=== PATIENT | female | born 1930 | race Asian ===

== ENCOUNTER → 2016-04-15 | Outpatient (CLI) | payer BC ==
[~2016-04-15] MED LIST: ACET-1256 PO; ANT25 PO; ASPEC81 PO; CALC-16 PO; CMD1 PO; CMD2 PO; LSN20 PO; METO-217 PO; MULT-506 PO; OMEG10007 PO; PLN5 PO; PRAV20TA PO; SPR25 PO; ZNTT/150 PO
[2016-04-15 17:03] LABS: BASO % 0.8 %; BASO ABS # 0.03 K/uL (0-0.2); COMPLETE YES; EOS % 4.8 %; HEMATOCRIT 39.7 % (37-47); LYMPH % 30.4 %; LYMPH ABS # 1.19 K/uL (1.2-3.4); MEAN CORPUSCULAR HEMOGLOBIN 33.1 pg (25-34); MEAN CORPUSCULAR HGB CONC 33.8 g/dl (32-36); MEAN PLATELET VOLUME 10.7 fL (7.4-10.4); MONO % 10.5 %; NEUT % 53.5 %; PLATELET COUNT 191 K/uL (130-400); RED BLOOD COUNT 4.05 M/uL (4.2-5.4); WHITE BLOOD COUNT 3.92 K/uL (4.8-10.8)
[2016-04-15 17:13] LABS: ALT/SGPT 22 U/L (12-78); AST/SGOT 40 U/L (15-37); BLOOD UREA NITROGEN 27 mg/dl (7-18); BUN/CREATININE RATIO 22.3 (10-20); CARBON DIOXIDE 26 mmol/L (21-32); CHLORIDE 106 mmol/L (98-107); GLUCOSE 87 mg/dl (70-99); POTASSIUM 4.5 mmol/L (3.5-5.1); SODIUM 140 mmol/L (136-145)
[2016-04-15 17:24] LABS: ALB/GLOB RATIO 1.2 (0.9-2); ALKALINE PHOSPHATASE 43 U/L (45-117); CHOLESTEROL 138 mg/dl (0-200); CHOLESTEROL/HDL RATIO 2.7; HDL CHOLESTEROL 51 mg/dl; LDL CHOLESTEROL CALCULATED 60 mg/dl; TRIGLYCERIDES 136 mg/dl (0-150); VERY LOW DENSITY LIPOPROT CALC 27 mg/dl
== END | disposition home or self-care (01) ==
LOC: C.LABBC 12:22
PROVIDERS: ATTEND Internal Medicine Geriatric Medicine
DX: I48.2 Chronic atrial fibrillation (principal); I10 Essential (primary) hypertension; R35.0 Frequency of micturition; E78.5 Hyperlipidemia, unspecified; I49.5 Sick sinus syndrome; R73.9 Hyperglycemia, unspecified; R31.9 Hematuria, unspecified; Z79.01 Long term (current) use of anticoagulants; N93.9 Abnormal uterine and vaginal bleeding, unspecified; Z51.81 Encounter for therapeutic drug level monitoring

== ENCOUNTER → 2016-09-09 | Outpatient (CLI) | payer BC ==
[2016-09-09 10:34] LABS: BASO % 0.8 %; BASO ABS # 0.03 K/uL (0-0.2); COMPLETE YES; EOS % 5.9 %; HEMATOCRIT 41.8 % (37-47); IG% 0.3 %; LYMPH % 31.4 %; LYMPH ABS # 1.11 K/uL (1.2-3.4); MEAN CELL VOLUME 99.8 fL (80-100); MEAN CORPUSCULAR HEMOGLOBIN 32.7 pg (25-34); MEAN CORPUSCULAR HGB CONC 32.8 g/dl (32-36); MONO % 10.2 %; NEUT % 51.4 %; PLATELET COUNT 200 K/uL (130-400); RED BLOOD COUNT 4.19 M/uL (4.2-5.4); WHITE BLOOD COUNT 3.53 K/uL (4.8-10.8)
[2016-09-09 10:38] LABS: CALCIUM 9.2 mg/dl (8.5-10.1)
[2016-09-09 10:41] LABS: ALT/SGPT 24 U/L (12-78); BLOOD UREA NITROGEN 31 mg/dl (7-18); BUN/CREATININE RATIO 23.6 (10-20); CARBON DIOXIDE 27 mmol/L (21-32); CHLORIDE 106 mmol/L (98-107); CHOLESTEROL 156 mg/dl (0-200); GLUCOSE 76 mg/dl (70-99); POTASSIUM 4.7 mmol/L (3.5-5.1); SODIUM 140 mmol/L (136-145); TRIGLYCERIDES 207 mg/dl (0-150); VERY LOW DENSITY LIPOPROT CALC 41 mg/dl
[2016-09-09 10:49] LABS: ESTIMATED AVERAGE GLUCOSE 126 mg/dl; HA1C FLAG Normal (Normal)
[2016-09-09 10:51] LABS: ALB/GLOB RATIO 1.1 (0.9-2); ALKALINE PHOSPHATASE 47 U/L (45-117); AST/SGOT 46 U/L (15-37); CHOLESTEROL/HDL RATIO 3.8; HDL CHOLESTEROL 41 mg/dl; LDL CHOLESTEROL CALCULATED 74 mg/dl
== END | disposition home or self-care (01) ==
LOC: C.LABBC 08:59
PROVIDERS: ATTEND Internal Medicine Geriatric Medicine
DX: I10 Essential (primary) hypertension (principal); I49.5 Sick sinus syndrome; R42 Dizziness and giddiness; E78.5 Hyperlipidemia, unspecified; R73.9 Hyperglycemia, unspecified; M19.90 Unspecified osteoarthritis, unspecified site

== ENCOUNTER → 2016-11-05 | Outpatient (CLI) | payer BC ==
[2016-11-05 10:42] LABS: ALT/SGPT 23 U/L (12-78); BLOOD UREA NITROGEN 24 mg/dl (7-18); BUN/CREATININE RATIO 18.8 (10-20); CALCIUM 9.5 mg/dl (8.5-10.1); CARBON DIOXIDE 29 mmol/L (21-32); CHLORIDE 106 mmol/L (98-107); GLUCOSE 65 mg/dl (70-99); SODIUM 141 mmol/L (136-145)
[2016-11-05 10:45] LABS: ALB/GLOB RATIO 1.1 (0.9-2); ALKALINE PHOSPHATASE 46 U/L (45-117); AST/SGOT 45 U/L (15-37)
== END | disposition home or self-care (01) ==
LOC: C.LABVPSUW 09:31
PROVIDERS: ATTEND Internal Medicine Geriatric Medicine
DX: I12.9 Hypertensive chronic kidney disease with stage 1 through stage 4 chronic kidney disease, or unspecified chronic kidney disease (principal); N18.9 Chronic kidney disease, unspecified; I49.5 Sick sinus syndrome

== ENCOUNTER → 2016-11-11 | Outpatient (CLI) | payer BC ==
--- NOTE | 2016-11-11 09:18 | DIAGNOSTIC IMAGING REPORT ---
EXAMINATION: RENAL ULTRASOUND CLINICAL HISTORY: ELEVATED SERUM CREATININE COMPARISON STUDY: CT scan dated 04/26/2013 FINDINGS: The right kidney measures 10.1 cm. The left kidney measures 10.1 cm. There is no evidence of hydronephrosis. There are no renal masses. There is slight increase in renal cortical echogenicity, consistent with medical renal disease. No bladder abnormalities are visualized. Bilateral ureteral jets were visualized. IMPRESSION : Slight increase in renal cortical echogenicity, suggesting medical renal disease. No renal masses identified. No evidence of hydronephrosis. Electronically signed by: Vamsi Pro M.D. 11/11/2016 9:17 AM Dictated Date/Time: 11/11/2016 9:16 AM
== END | disposition home or self-care (01) ==
LOC: C.ULTRBC 08:36
PROVIDERS: ATTEND Internal Medicine Geriatric Medicine
DX: R79.89 Other specified abnormal findings of blood chemistry (principal)

== ENCOUNTER → 2016-11-26 | Outpatient (CLI) | payer BC ==
[2016-11-26 10:50] LABS: BLOOD UREA NITROGEN 28 mg/dl (7-18); BUN/CREATININE RATIO 23.4 (10-20); CALCIUM 9.3 mg/dl (8.5-10.1); CARBON DIOXIDE 26 mmol/L (21-32); CHLORIDE 106 mmol/L (98-107); GLUCOSE 88 mg/dl (70-99); POTASSIUM 4.2 mmol/L (3.5-5.1); SODIUM 139 mmol/L (136-145)
[2016-11-26 10:51] LABS: INR 2.6 (0.9-1.1); PROTHROMBIN TIME (PATIENT) 29.1 SECONDS (9.0-12.0)
== END | disposition home or self-care (01) ==
LOC: C.LABVPSUW 10:12
PROVIDERS: ATTEND Internal Medicine Geriatric Medicine
DX: Z00.00 Encounter for general adult medical examination without abnormal findings (principal); N18.9 Chronic kidney disease, unspecified; I12.9 Hypertensive chronic kidney disease with stage 1 through stage 4 chronic kidney disease, or unspecified chronic kidney disease; I49.5 Sick sinus syndrome; I48.2 Chronic atrial fibrillation

== ENCOUNTER → 2017-02-08 | Outpatient (CLI) | payer BC ==
[2017-02-08 10:10] LABS: PROTHROMBIN TIME (PATIENT) 45.8 SECONDS (9.0-12.0)
== END | disposition home or self-care (01) ==
LOC: C.LABVPSUW 09:41
PROVIDERS: ATTEND Internal Medicine Cardiovascular Disease
DX: I48.2 Chronic atrial fibrillation (principal)

== ENCOUNTER → 2017-02-11 | Outpatient (CLI) | payer BC ==
[2017-02-11 09:53] LABS: PROTHROMBIN TIME (PATIENT) 21.5 SECONDS (9.0-12.0)
== END | disposition home or self-care (01) ==
LOC: C.LABVPSUW 09:06
PROVIDERS: ATTEND Internal Medicine Cardiovascular Disease
DX: I48.2 Chronic atrial fibrillation (principal)

== ENCOUNTER → 2017-03-04 | Outpatient (CLI) | payer BC ==
[2017-03-04 08:55] LABS: INR 2.2 (0.9-1.1); PROTHROMBIN TIME (PATIENT) 22.8 SECONDS (9.0-12.0)
== END | disposition home or self-care (01) ==
LOC: C.LABVPSUW 08:34
PROVIDERS: ATTEND Internal Medicine Cardiovascular Disease
DX: I48.2 Chronic atrial fibrillation (principal)

== ENCOUNTER → 2017-05-25 | Outpatient (CLI) | payer BC ==
[~2017-05-25] MED LIST changes: +RANI150T85 PO; -ZNTT/150 PO
[2017-05-25 16:49] LABS: BASO % 0.7 %; BASO ABS # 0.03 K/uL (0-0.2); EOS % 4.5 %; HEMATOCRIT 37.6 % (37-47); HEMOGLOBIN 12.7 g/dL (12.0-16.0); LYMPH % 25.6 %; LYMPH ABS # 1.15 K/uL (1.2-3.4); MEAN CELL VOLUME 98.2 fL (80-100); MEAN CORPUSCULAR HEMOGLOBIN 33.2 pg (25-34); MEAN CORPUSCULAR HGB CONC 33.8 g/dl (32-36); MEAN PLATELET VOLUME 9.9 fL (7.4-10.4); MONO ABS # 0.36 K/uL (0.11-0.59); NEUT % 61.2 %; NEUT ABS # 2.75 K/uL (1.4-6.5); PLATELET COUNT 200 K/uL (130-400); RED CELL DISTRIBUTION WIDTH CV 13.5 % (11.5-14.5); RED CELL DISTRIBUTION WIDTH SD 48.4 fL (36.4-46.3); WHITE BLOOD COUNT 4.49 K/uL (4.8-10.8)
[2017-05-25 17:19] LABS: BLOOD UREA NITROGEN 32 mg/dl (7-18); CALCIUM 9.1 mg/dl (8.5-10.1); CARBON DIOXIDE 26 mmol/L (21-32); CREATININE 1.37 mg/dl (0.60-1.20); GLUCOSE 121 mg/dl (70-99); POTASSIUM 4.3 mmol/L (3.5-5.1); SODIUM 137 mmol/L (136-145)
== END | disposition home or self-care (01) ==
LOC: C.LABBC 15:04
PROVIDERS: ATTEND Internal Medicine Geriatric Medicine
DX: I12.9 Hypertensive chronic kidney disease with stage 1 through stage 4 chronic kidney disease, or unspecified chronic kidney disease (principal); R73.9 Hyperglycemia, unspecified; Z79.01 Long term (current) use of anticoagulants; N18.9 Chronic kidney disease, unspecified

== ENCOUNTER → 2017-11-08 | Outpatient (CLI) | payer BC ==
[~2017-11-08] MED LIST changes: -ASPEC81 PO; +ASPI-320 PO; +LISI-726 PO; -LSN20 PO; +SPIR25TA6 PO; -SPR25 PO
[2017-11-08 10:07] LABS: INR 3.3 (0.9-1.1)
== END | disposition home or self-care (01) ==
LOC: C.LABVPSUW 09:38
PROVIDERS: ATTEND Internal Medicine Cardiovascular Disease
DX: I48.2 Chronic atrial fibrillation (principal)

== ENCOUNTER 2019-09-30 22:02 | Inpatient (IN) ==
[2019-09-30] MEDS ORDERED: OPTIRAY 320 125ml IV PRN (22:18)
[2019-09-30 22:32] LABS: Basophils # (auto) 0.01 K/uL (0-0.2); Basophils % (auto) 0.1 %; Eosinophils # (auto) 0.01 K/uL (0-0.5); Eosinophils % (auto) 0.1 %; Hemoglobin 10.9 g/dL (12.0-16.0); Immature Granulocytes # (auto) 0.01 K/uL (0.00-0.02); Immature Granulocytes % (auto) 0.1 %; Lymphocytes % (auto) 8.3 %; Mean Corpuscular Hemoglobin 31.8 pg (25-34); Mean Corpuscular Volume 96.2 fL (80-100); Mean Platelet Volume 9.9 fL (7.4-10.4); Monocytes # (auto) 0.36 K/uL (0.11-0.59); Neutrophils # (auto) 6.22 K/uL (1.4-6.5); Neutrophils % (auto) 86.4 %; Platelet Count 184 K/uL (130-400); RDW Coefficient of Variation 13.1 % (11.5-14.5); RDW Standard Deviation 45.4 fL (36.4-46.3); Red Blood Count 3.43 M/uL (4.2-5.4); White Blood Count 7.21 K/uL (4.8-10.8)
[2019-09-30 22:42] LABS: INR 1.2 (0.9-1.1); Partial Thromboplastin Time 28.8 Seconds (21.0-31.0); Prothrombin Time 12.2 Seconds (9.0-12.0)
[2019-09-30 22:51] LABS: Albumin Level 3.2 gm/dl (3.4-5.0); BUN Creatinine Ratio 21.5 (10-20); Calcium 8.7 mg/dl (8.5-10.1); Creatinine Clr Calc Pharmacy 24.7 ml/min; Est GFR (African American) 42.5; Est GFR (Non-African American) 36.7; Magnesium 1.7 mg/dl (1.8-2.4); Potassium 4.1 mmol/L (3.5-5.1)
--- NOTE | 2019-09-30 22:53 | Emergency Department Note ---
Impression & Plan Acute CVA (cerebrovascular accident), Hypomagnesemia, Atrial fibrillation ED Provider Note NAME: ARMANDO LIN AGE: 88 SEX: F : 1930 ARRIVES VIA: Ambulance INFORMANT: Patient, the prehospital personnel. ED PROVIDER(S): Papo Quinteros DO CHIEF COMPLAINT: Weakness HPI: The patient is an 88-year-old female who presented to the emergency department for an evaluation of weakness. The patient was found on the floor at her personal assisted exhibiting signs of stroke. We received a prehospital notification about the patient and she was made a stroke alert prior to arrival. Apparently the patient's son has been trying to get a hold of her. When he called the personal assisted and they sent maintenance to check on her she was found on her floor. The patient was exhibiting signs of right-sided weakness both in the upper and lower extremity. She is also exhibiting right facial droop. She is complaining of left hip pain. The patient speech is somewhat slurred and history is difficult to obtain. Prior to arrival the patient's previous electronic medical records were reviewed. The patient does have a history of atrial fibrillation and does take warfarin. She also has a history of an intracranial hemorrhage in the past. At this time the last known well time is somewhere around 9:30 in the morning because this is the time that residents would normally press her alert button to show that they are awake and well. ROS: See above HPI for pertinent positives & negatives. A total of 10 systems reviewed and were otherwise negative. PAST MEDICAL HISTORY: See Below PAST SURGICAL HISTORY: See Below FAMILY HISTORY: See Below SOCIAL HISTORY: See Below HOME MEDICATIONS: See Below ALLERGIES: See Below VITALS: See Below PHYSICAL EXAMINATION: GENERAL: The patient is awake and very anxious appearing. The patient speech is very pressured. EYES: The conjunctivae are clear. The pupils are round and reactive. EARS, NOSE, MOUTH AND THROAT: The nose is without any evidence of any deformity. Mucous membranes are moist. Tongue is midline. NECK: The neck is nontender and supple. RESPIRATORY: Normal respiratory effort is noted there is no evidence of wheezing rhonchi or rales CARDIOVASCULAR: Irregular rhythm was noted to auscultation. GASTROINTESTINAL: The abdomen is soft. Abdomen is nontender. MUSCULOSKELETAL/EXTREMITIES: There is pain with range of motion testing of the left hip. There is no deformity or shortening. The patient also has some tenderness on the lateral aspect of the left knee. SKIN: There is no obvious evidence of any rash. There are no petechiae, pallor or cyanosis noted. NEUROLOGIC: The patient is able to answer questions slowly. Her speech is pressured. There is a right facial droop involving the corner of the mouth. There appears to be forehead sparing. The patient has a contracted right upper extremity. The right upper extremity is flaccid. The patient is unable to lift the right leg off the bed. She is also having significant difficulty lifting the left leg off the bed. She is able to hold the left arm in the air for greater than 5 seconds. MEDICAL DECISION MAKING: The patient is an 88-year-old female who presented to the emergency department for an evaluation of right-sided weakness. The patient was not seen today until she was found on her floor. She does have a button that she has to push in the morning at approximately 9:30 AM. It appears the patient was unable to be reached by family members today. Her son called her personal assisted for her to be checked on this evening and she was found on her floor with left hip pain as well as right-sided weakness. The patient was made a stroke alert prior to arrival. A quick review the patient's history did reveal that she has a history of a subdural hematoma in the spring of this year. She does have a history of atrial fibrillation. Her medication list did show that she was taking warfarin but her INR is subtherapeutic at this time. After discussion with the patient's family member it sounds though the patient was not restarted on warfarin after her subdural hematoma. The patient's plain CT did not show any acute disease. The patient would not be a TPA candidate at this time given her recent intracranial hemorrhage. She would also not be a TPA candidate given the unknown onset of symptoms. She does not appear to have a large vessel occlusion on CT angiography. I discussed the patient's laboratory and radiographic studies with her as well as her son via telephone. She was evaluated by the tele-stroke neurologist. I also discussed her case with the on-call [facility] hospitalist. They have agreed to evaluate the patient in the emergency department for further management and disposition. The tele-stroke neurologist did feel the patient may require IV Keppra as she was placed on this in the ring when she saw neurosurgery. She was given IV Keppra in the emergency department. She was also treated with IV fluids and IV magnesium replacement. Triage Nursing notes reviewed. Prior medical records reviewed Vital Signs: reviewed and remarkable for tachycardia and elevated blood pressure. Differential diagnosis: Infection, dehydration, metabolic abnormality, hypo/hyperglycemia, electrolyte disturbance, anemia, hypoxia, cardiac sources, intracerebral event, toxicologic, neurologic, as well as other pathologies. ER treatment provided: See below Diagnostics interpreted by me: ECG: EKG was obtained in the emergency department. My interpretation is atrial fibrillation at [address] segment depression is noted. There is no PVCs. This was compared to a tracing from August 25, 2019. No significant changes were noted. Cardiac Monitoring: An order was placed for continuous cardiac monitoring. The monitor shows a rate of 95 with atrial fibrillation rhythm. Laboratory studies: As stated above and show below. Imaging studies: See below Consultation(s): 2220: I discussed this case with the stroke neurologist at [facility], Dr. Hernadez. He will evaluate the patient via the tele-stroke cart. 2315: I discussed the patient's condition with her son Keily [phone] he is aware the patient's condition at this time. He does state that the patient neurologic findings this evening are new but he is still unsure of the patient's onset of symptoms. 2340: I discussed this case with Dr. Vora. He is agreed to evaluate the patient in the emergency department for further management disposition. Critical Care: I have personally spent greater than 45 minutes of critical care time in the direct management of this patient. This includes bedside care, interpretation of diagnostic studies, and testing, discussion with consultants, patient, and family members, and other required patient management activities. This 45 minutes is in excess of all separately billable procedures. Past Med/Surg History Medical History Gait disturbance (Acute) Gastroesophageal reflux disease (Acute) Glaucoma Hepatic cyst (Acute) Hyperglycemia (Acute) Mitral regurgitation Osteoarthritis (Chronic) Pacemaker (Inactive) Permanent atrial fibrillation (Chronic) Pigmented skin lesions Post-menopausal atrophic vaginitis Right knee pain Sick sinus syndrome Tricuspid regurgitation Surgical History History of colonoscopy History of permanent cardiac pacemaker placement Family History Mother Hypertension Denies family history of Ovarian cancer Prostate cancer Breast cancer Lung cancer Colorectal cancer Social History Preferred Language: Samoan Communication Ability: Effective Visual Impairment: Limited Hearing Ability: Use of Hearing Aid [employer]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 and No marital status: Single Current Living Situation: Personal Care Facility Current Living Situation Comment: [facility] current occupational status: retired Feels Safe at Home: Yes Smoking Status: Never smoker Hx Alcohol Use: No Hx Substance Use: No Childhood Exposure to Second-Hand Smoke: Yes caffeine: Yes Dental Care, Regularly: Yes Physical Activity Frequency: 3-4 Times per Week Physical Activity Frequency Comment: walk/works out at gym Seatbelt Use: always Sunscreen Use: No (not in the sun) Allergies Allergies Allergy/AdvReac Type Severity Reaction Status Date / Time No Known Drug Allergies Allergy Unknown . Verified 10/01/19 03:23 Home Meds Home Medications Medication Instructions Recorded Confirmed multivitamin 1 tab PO DAILY 10/28/18 09/30/19 acetaminophen 500 mg tablet 500 mg PO Q4H PRN tab 11/06/18 09/30/19 bimatoprost [Lumigan] 1 drp OPHTHALMIC (EYE) HS 07/20/19 09/30/19 lidocaine 1 patch TOPICAL .COMPLEX PRN 07/20/19 09/30/19 warfarin 0 mg PO UD 07/20/19 09/30/19 dorzolamide 22.3 mg-timolol 6.8 1 drops OP BID 08/15/19 09/30/19 mg/mL eye drops meclizine 25 mg tablet 25 mg PO DAILY PRN 08/15/19 09/30/19 tolterodine 4 mg capsule,extended 4 mg PO DAILY cap 09/21/19 09/30/19 release 24 hr Ranitidine 150 mg PO DAILY 09/30/19 09/30/19 calcium carbonate [Calcium 500] 500 mg PO DAILY 09/30/19 09/30/19 conjugated estrogens [Premarin] 0.625 mg VAGINAL .[id number] 09/30/19 09/30/19 felodipine 5 mg PO DAILY 09/30/19 09/30/19 flaxseed oil 1,000 mg PO DAILY 09/30/19 09/30/19 pravastatin 20 mg PO DAILY 09/30/19 09/30/19 Previous Rx's Medication Instructions Recorded metoprolol succinate 50 mg 50 mg PO DAILY #90 tab 03/05/19 tablet,extended release 24 hr spironolactone 25 mg tablet 50 mg PO DAILY #60 tab 04/10/19 lisinopril 20 mg tablet 20 mg PO BID #180 tab 08/10/19 Results & Data (ED) Vital Signs Vital Signs - 24 hr 09/30/19 22:23 09/30/19 22:25 09/30/19 22:30 Temperature 36.9 C Temperature Source Oral Pulse Rate 95 H 112 H 93 H Pulse Rate from SpO2 Sensor 104 H 88 Pulse Rhythm Irregular Respiratory Rate 21 18 20 Respiratory Effort / Characteristics Non-Labored Spontaneous Respiratory Depth Normal Blood Pressure 130/86 130/86 129/80 Blood Pressure Mean 97 100 102 Pulse Oximetry 99 99 97 Oxygen Delivery Method Room Air Sepsis Recent Fever Within 48 Hours No Sepsis New/Unexplained Change in Mental Status No Sepsis Action Taken by Nursing No Action Required 09/30/19 22:31 09/30/19 22:45 09/30/19 23:00 Temperature Temperature Source Pulse Rate 99 H 86 90 Pulse Rate from SpO2 Sensor 98 H 84 90 Pulse Rhythm Respiratory Rate 18 19 19 Respiratory Effort / Characteristics Respiratory Depth Blood Pressure 123/77 Blood Pressure Mean 97 Pulse Oximetry 97 97 84 L Oxygen Delivery Method Sepsis Recent Fever Within 48 Hours Sepsis New/Unexplained Change in Mental Status Sepsis Action Taken by Nursing 09/30/19 23:01 09/30/19 23:02 09/30/19 23:15 Temperature Temperature Source Pulse Rate 107 H 86 86 Pulse Rate from SpO2 Sensor 90 91 H Pulse Rhythm Respiratory Rate 20 18 18 Respiratory Effort / Characteristics Respiratory Depth Blood Pressure 136/100 143/92 H Blood Pressure Mean 110 97 Pulse Oximetry 89 L 99 Oxygen Delivery Method Sepsis Recent Fever Within 48 Hours Sepsis New/Unexplained Change in Mental Status Sepsis Action Taken by Nursing 09/30/19 23:30 09/30/19 23:31 09/30/19 23:45 Temperature Temperature Source Pulse Rate 85 85 99 H Pulse Rate from SpO2 Sensor 82 87 Pulse Rhythm Respiratory Rate 16 22 21 Respiratory Effort / Characteristics Respiratory Depth Blood Pressure 134/81 134/93 Blood Pressure Mean 85 98 Pulse Oximetry 98 98 Oxygen Delivery Method Sepsis Recent Fever Within 48 Hours Sepsis New/Unexplained Change in Mental Status Sepsis Action Taken by Nursing 10/01/19 00:00 10/01/19 00:01 10/01/19 00:20 Temperature Temperature Source Pulse Rate 88 84 84 Pulse Rate from SpO2 Sensor 88 86 Pulse Rhythm Respiratory Rate 20 21 20 Respiratory Effort / Characteristics Respiratory Depth Blood Pressure 141/88 H 110/80 Blood Pressure Mean 94 88 Pulse Oximetry 97 97 Oxygen Delivery Method Sepsis Recent Fever Within 48 Hours Sepsis New/Unexplained Change in Mental Status Sepsis Action Taken by Nursing 10/01/19 00:30 10/01/19 00:31 10/01/19 01:00 Temperature Temperature Source Pulse Rate 65 72 82 Pulse Rate from SpO2 Sensor 71 72 85 Pulse Rhythm Respiratory Rate 17 17 17 Respiratory Effort / Characteristics Respiratory Depth Blood Pressure 122/68 123/84 Blood Pressure Mean 71 100 Pulse Oximetry 96 96 94 Oxygen Delivery Method Sepsis Recent Fever Within 48 Hours Sepsis New/Unexplained Change in Mental Status Sepsis Action Taken by Nursing 10/01/19 01:01 10/01/19 01:30 10/01/19 01:31 Temperature Temperature Source Pulse Rate 81 69 74 Pulse Rate from SpO2 Sensor 81 71 74 Pulse Rhythm Respiratory Rate 19 16 15 Respiratory Effort / Characteristics Respiratory Depth Blood Pressure 114/72 Blood Pressure Mean 80 Pulse Oximetry 96 96 96 Oxygen Delivery Method Sepsis Recent Fever Within 48 Hours Sepsis New/Unexplained Change in Mental Status Sepsis Action Taken by [facility] Medications Current Medication List: was personally reviewed by me Laboratory Data Attestation: I reviewed the patient's lab results. Result diagrams: 10/01/19 06:36 10/01/19 06:36 Lab Results 09/30/19 09/30/19 09/30/19 Range/Units 22:19 22:19 22:19 WBC 7.21 (4.8-10.8) K/uL RBC 3.43 L (4.2-5.4) M/uL Hgb 10.9 L (12.0-16.0) g/dL Hct 33.0 L (37-47) % MCV 96.2 (80-100) fL MCH 31.8 (25-34) pg MCHC 33.0 (32-36) g/dL RDW Std Deviation 45.4 (36.4-46.3) fL RDW Coeff of Miguel 13.1 (11.5-14.5) % Plt Count 184 (130-400) K/uL MPV 9.9 (7.4-10.4) fL Immature Gran % (Auto) 0.1 % Neut % (Auto) 86.4 % Lymph % (Auto) 8.3 % Parke % (Auto) 5.0 % Eos % (Auto) 0.1 % Baso % (Auto) 0.1 % Neut # (Auto) 6.22 (1.4-6.5) K/uL Lymph # (Auto) 0.60 L (1.2-3.4) K/uL Parke # (Auto) 0.36 (0.11-0.59) K/uL Eos # (Auto) 0.01 (0-0.5) K/uL Baso # (Auto) 0.01 (0-0.2) K/uL Immature Gran # (Auto) 0.01 (0.00-0.02) K/uL PT 12.2 H (9.0-12.0) Seconds INR 1.2 H (0.9-1.1) APTT 28.8 (21.0-31.0) Seconds PTT Ratio 1.0 Sodium 137 (136-145) mmol/L Potassium 4.1 (3.5-5.1) mmol/L Chloride 106 (98-107) mmol/L Carbon Dioxide 21 (21-32) mmol/L Anion Gap 10.0 (3-11) BUN 28 H (7-18) mg/dl Creatinine 1.29 H (0.6-1.2) mg/dl Est Cr Clr Drug Dosing 24.7 ml/min Est GFR ( Amer) 42.5 Est GFR (Non-Af Amer) 36.7 BUN/Creatinine Ratio 21.5 H (10-20) Glucose 116 H (70-99) mg/dl Calcium 8.7 (8.5-10.1) mg/dl Magnesium 1.7 L (1.8-2.4) mg/dl Total Bilirubin 0.6 (0.2-1) mg/dl AST 32 (15-37) U/L ALT 16 (12-78) U/L Alkaline Phosphatase 40 L (45-117) U/L Total Creatine Kinase 175 (26-192) U/L CK-MB (CK-2) 2.9 (0.5-3.6) ng/ml CK/CKMB % Calc 1.7 (0-3.0) Troponin I 0.033 (0-0.045) ng/ml Total Protein 6.3 L (6.4-8.2) gm/dl Albumin 3.2 L (3.4-5.0) gm/dl Globulin 3.1 (2.5-4.0) gm/dl Albumin/Globulin Ratio 1.0 (0.9-2) Administered Medications Dorzolamide/Timolol (Cosopt) 1 drops OP BID RORY Stop: 10/31/19 08:59 Last Admin: 10/01/19 08:55 Dose: 1 drops Documented by: [id number] Sodium Chloride (Nss 1000ml) 1,000 mls @ 80 mls/hr IV .[id number] RORY Stop: 10/31/19 03:16 Last Admin: 10/01/19 03:25 Dose: 80 mls/hr Documented by: [id number] Ioversol (Optiray 320 125ml) 115 ml IV ONCE PRN PRN Reason: Interaction Checking Stop: 10/04/19 22:17 Last Admin: 09/30/19 22:18 Dose: 115 ml Documented by: [id number] Discontinued Medications Aspirin (Aspirin) 300 mg TX ONE ONE Stop: 09/30/19 23:27 Last Admin: 09/30/19 23:41 Dose: 300 mg Documented by: [id number] Magnesium Sulfate/Dextrose (Magnesium Sulfate / D5w) 1 gm in 100 mls @ 100 mls/hr IV Q1H RORY Stop: 10/01/19 01:25 Last Infusion: 10/01/19 03:27 Dose: 100 mls/hr Documented by: [id number] Infusion: 10/01/19 00:55 Dose: 0 mls/hr Documented by: [id number] Admin: 10/01/19 00:34 Dose: 100 mls/hr Documented by: [id number] Infusion: 10/01/19 00:33 Dose: 0 mls/hr Documented by: [id number] Admin: 09/30/19 23:31 Dose: 100 mls/hr Documented by: [id number] Sodium Chloride (Nss 1000ml) 500 mls @ 999 mls/hr IV .Q31M ONE Stop: 09/30/19 23:56 Last Infusion: 10/01/19 00:34 Dose: 0 mls/hr Documented by: [id number] Admin: 09/30/19 23:33 Dose: 999 mls/hr Documented by: [id number] Levetiracetam 1,000 mg/ Sodium (Chloride) 110 mls @ 440 mls/hr IV NOW STA Stop: 10/01/19 00:02 Last Infusion: 10/01/19 00:50 Dose: 0 mls/hr Documented by: [id number] Admin: 10/01/19 00:34 Dose: 440 mls/hr Documented by: [id number] Imaging Data Attestation: I personally reviewed and interpreted this imaging study as segun worthington: My Impression: Portable chest x-ray was obtained in the emergency department. My interpretation is cardiomegaly with pacemaker. No free air. No definite infiltrate. No acute disease. X-ray of the left knee was obtained in the emergency department. There was significant degenerative changes. No definite fracture was noted. X-ray of the left hip and pelvis were obtained in the emergency department. My interpretation is no acute hip fracture was noted. No acute disease. Degenerative changes were noted in both hips. Radiologist's Impression: Preliminary Findings Only See Final Report For Comp lete Findings CTA HEAD: The A1 segment of the right SAYDA is not well visualized, may be hypoplastic or occluded. Severe stenosis or occlusion of the A3 segment of the right SAYDA also noted. Compare to prior imaging if available. Otherwise, no large vessel occlusion. Radiologist: Alisa Humphrey M.D. Study ready at 22:25 and initial results transmitted at 22:33 Communications: Clear Time Type Notes 09/30/19 22:42 Call Doctor Regarding Stroke, called Dr. Quinteros on 09/29 22:42 (- 04:00) Preliminary Findings Only See Final Report For Complete Findings CTA NECK: No high-grade stenosis or occlusion. Small focal outpouching of the left vertebral artery at the C1-2 level (image [id number]). Irregular density inseparable from the aortic arch, presumably atherosclerotic d isease. Differential considerations include lung nodule or consolidation. Thyroid nodules. Radiologist: Alisa Humphrey M.D. Study ready at 22:25 and initial results transmitted at 22:40 Communications: Clear Time Type Notes 09/30/19 22:42 Call Doctor Regarding Stroke, called Dr. Quinteros on 09/29 22:42 (- 04:00) Preliminary Findings Only See Final Report For Complete Findings CT HEAD: No intracranial hemorrhage or acute cortical infarct. MRI is more sensitive if t here is persistent concern. Involutional changes and small vessel disease. Radiologist: Alisa Humphrey M.D. Study ready at 22:18 and initial results transmitted at 22:25 Communications: Clear Time Type Notes 09/30/19 22:42 Call Doctor Regarding Stroke, called Dr. Quinteros on 09/29 22:42 (- 04:00) Blood Pressure Blood Pressure Findings: Normal blood pressure Discharge Plan Visit Data *Final* Discharge Date/Time: 10/01/19 02:03 Chief Complaint: Stroke Alert Stated Complaint: STROKE ED Provider: Papo Quinteros Discharge Problem: Acute CVA (cerebrovascular accident), Hypomagnesemia, Atrial fibrillation Patient Disposition: Admitted As Inpatient Condition: Good Discharge Instructions Interventions: ED Discharge Assessment Last Done: 10/01/19 02:03 Discharge Problem: Atrial fibrillation Qualifiers: Atrial fibrillation type: unspecified Qualified Code(s): I48.91 - Unspecified atrial fibrillation
[2019-09-30 22:56] LABS: Bilirubin,Total 0.6 mg/dl (0.2-1); Creatine Kinase MB 2.9 ng/ml (0.5-3.6); Globulin 3.1 gm/dl (2.5-4.0); Total Protein 6.3 gm/dl (6.4-8.2); Troponin I 0.033 ng/ml (0-0.045)
[2019-09-30] MEDS ORDERED: ASPIRIN 300 MG SUPP PR ONE (23:26)
[2019-09-30] MEDS ORDERED: SODIUM CHLORIDE 0.9% 1000ML 500 ML IV ONE (23:26)
[2019-09-30] MEDS: MAGNESIUM SULFATE / D5W 1 GM/100 ML BAG IV SCH (23:31)
[2019-09-30] MEDS ORDERED: levETIRAcetam 1,000 MG in 0.9 % SODIUM CHLORIDE 100 ML IV STA (23:48)
[2019-10-01] MEDS: MAGNESIUM SULFATE / D5W 1 GM/100 ML BAG IV SCH (00:34)
[2019-10-01] MEDS ORDERED: PHARMACIST DISCHARGE MED REC CONSULT PRN (03:17)
[2019-10-01] MEDS ORDERED: ONDANSETRON INJ 2 MG/ML 2 ML VIAL IV PRN (03:17)
[2019-10-01] MEDS: SODIUM CHLORIDE 0.9% 1000ML 1,000 ML IV SCH ×2 (03:25→16:07)
--- NOTE | 2019-10-01 05:07 | History & Physical Report ---
Date of Service October 01, 2019 Assessment & Plan (1) Acute CVA (cerebrovascular accident): Admit to monitored bed with stroke without TPA order set. Consult PT/OT/speech/neurology. Hold medications in a patient is able to pass dysphagia screen. Patient was presented as a stroke alert, and underwent assessment by the tele- stroke team from [facility]. Last known well time was for beyond any potential interventional time. Previous subdural hematoma with a limited intervention as well. Tele-stroke reported that when they compared the CT of head and CT angiography from today to images they had on file there, their interpretation was that there was not significant change. Present on Admission?: Yes (2) Subdural hematoma: Subdural hematoma noted on CT of 08/25/2019, is no longer apparent on CT today. Present on Admission?: Yes (3) Atrial fibrillation: Atrial fibrillation/hypertension- Patient's warfarin has been discontinued after subdural hematoma noted on 08/25/2019. Hold metoprolol, felodipine and lisinopril for now,\. Permissive hypertension Present on Admission?: Yes (4) Cardiac pacemaker in situ: We will hold on ordering MRI of brain, unless it can be verified that patient has an MRI compatible pacer Present on Admission?: Yes (5) Chronic kidney disease: Creatinine 1.29 upon admission, with range 1.27-1.43 Follow labs serially, while on NSS. Present on Admission?: Yes (6) Dyslipidemia: Resume pravastatin when patient passes dysphagia screen Present on Admission?: Yes (7) Gastroesophageal reflux disease: Place on famotidine 20 mg IV every 12 hours Present on Admission?: Yes (8) Hypertension: Allow permissive hypertension Present on Admission?: Yes (9) Glaucoma: Continue usual eyedrops Present on Admission?: Yes Admission and Anticipated Discharge Date Admission Date: October 01, 2019 History of Present Illness Chief Complaint: The patient was brought to the emergency department as a stroke alert, after being found on the floor at her personal half-way exhibiting signs of stroke, with right-sided weakness of upper and lower extremities and a right- sided facial droop. Primary Care Provider: Mega Wayne, DO The patient is an 88-year-old female with a past medical history including atrial fibrillation, cardiac pacemaker, subdural hematoma 08/18/2019, history of CVA, hematoma, CKD, dyslipidemia, gait disturbance, GERD, hepatic cyst, hyperglycemia, osteoarthritis, permanent atrial fibrillation and hypertension. The patient's last known well time was around 9:30 AM. After not responding to attempts to contact her later on in the day, the patient was found lying on the floor of her personal half-way showing right upper and lower extremity weakness and right facial droop. She was reported to have slurred speech at that time upon arrival to the ED, and was complaining of left hip pain. She had been on differential had a subdural hematoma on 08/25/2019, and reportedly was not on warfarin at the personal-half-way since that time. The patient was assessed immediately as a stroke alert, after advance notice was given to the emergency department about the patient's upcoming arrival. CT of head did not show any acute bleeding. CTA of head neck was reviewed by tele-stroke from [facility], and was felt to not be significantly different from previous scans at the end of July. Recommendation by tele-stroke was to meet the patient, give the usual supportive measures such as IV fluids, and order an MRI of brain. Allergies Allergy/AdvReac Type Severity Reaction Status Date / Time No Known Drug Allergies Allergy Unknown . Verified 10/01/19 03:23 Home Medications Home Medications Medication Instructions Recorded Confirmed Type multivitamin 1 tab PO DAILY 10/28/18 09/30/19 History acetaminophen 500 mg tablet 500 mg PO Q4H PRN tab 11/06/18 09/30/19 History metoprolol succinate 50 mg 50 mg PO DAILY #90 tab 03/05/19 09/30/19 Rx tablet,extended release 24 hr spironolactone 25 mg tablet 50 mg PO DAILY #60 tab 04/10/19 09/30/19 Rx bimatoprost [Lumigan] 1 drp OPHTHALMIC (EYE) HS 07/20/19 09/30/19 History lidocaine 1 patch TOPICAL .COMPLEX PRN 07/20/19 09/30/19 History warfarin 0 mg PO UD 07/20/19 09/30/19 History lisinopril 20 mg tablet 20 mg PO BID #180 tab 08/10/19 09/30/19 Rx dorzolamide 22.3 mg-timolol 6.8 1 drops OP BID 08/15/19 09/30/19 History mg/mL eye drops meclizine 25 mg tablet 25 mg PO DAILY PRN 08/15/19 09/30/19 History tolterodine 4 mg capsule,extended 4 mg PO DAILY cap 09/21/19 09/30/19 History release 24 hr Ranitidine 150 mg PO DAILY 09/30/19 09/30/19 History calcium carbonate [Calcium 500] 500 mg PO DAILY 09/30/19 09/30/19 History conjugated estrogens [Premarin] 0.625 mg VAGINAL .[id number] 09/30/19 09/30/19 History felodipine 5 mg PO DAILY 09/30/19 09/30/19 History flaxseed oil 1,000 mg PO DAILY 09/30/19 09/30/19 History pravastatin 20 mg PO DAILY 09/30/19 09/30/19 History Past Med/Surg History Medical History Gait disturbance (Acute) Gastroesophageal reflux disease (Acute) Hepatic cyst (Acute) Hyperglycemia (Acute) Mitral regurgitation Osteoarthritis (Chronic) Pacemaker (Inactive) Permanent atrial fibrillation (Chronic) Pigmented skin lesions Post-menopausal atrophic vaginitis Right knee pain Sick sinus syndrome Tricuspid regurgitation Surgical History History of colonoscopy History of permanent cardiac pacemaker placement Family History Mother Hypertension Denies family history of Ovarian cancer Prostate cancer Breast cancer Lung cancer Colorectal cancer Social History Preferred Language: Syrian Communication Ability: Effective Visual Impairment: Limited Hearing Ability: Use of Hearing Aid Heel Nail Rasper Required: Video and No marital status: Single Current Living Situation: Personal Care Facility Current Living Situation Comment: [facility] current occupational status: retired Feels Safe at Home: Yes Smoking Status: Never smoker Hx Alcohol Use: No Hx Substance Use: No Childhood Exposure to Second-Hand Smoke: Yes caffeine: Yes Dental Care, Regularly: Yes Physical Activity Frequency: 3-4 Times per Week Physical Activity Frequency Comment: walk/works out at gym Seatbelt Use: always Sunscreen Use: No (not in the sun) Review of Systems Review of Systems: Unobtainable due to cognitive status Physical Exam Physical Exam: The patient is unresponsive, normocephalic and atraumatic, lying in bed and in no acute distress. HEENT--PERRL, EOMI, mucous membranes and oropharynx normal Neck--supple. No JVD. No bruits. Thyroid normal, trachea midline, no adenopathy. Heart--normal S1 and S2. No murmurs, rubs or gallops. Lungs--clear bilaterally, no respiratory distress, no accessory muscle use. Abdomen--normal bowel sounds and soft. Nontender. Nondistended. Extremities--no cyanosis or clubbing. No edema. Dermatologic--normal skin turgor, normal color. Neurologic--cranial nerves II through XII grossly intact. Rheumatologic--limited exam Psychiatric--unresponsive Results & Data Results & Data ([facility]) Vital Signs (Past 12 Hours) Vital Signs Temp Pulse Pulse Resp BP BP Pulse Ox 10/01/19 04:06 78 10/01/19 02:30 97.7 F 78 16 113/78 96 10/01/19 02:01 65 17 99 10/01/19 02:00 60 21 127/71 95 10/01/19 01:31 74 15 96 10/01/19 01:30 69 16 114/72 96 10/01/19 01:01 81 19 96 10/01/19 01:00 82 17 123/84 94 10/01/19 00:31 72 17 96 10/01/19 00:30 65 17 122/68 96 10/01/19 00:20 84 20 110/80 97 10/01/19 00:01 84 21 97 10/01/19 00:00 88 20 141/88 H 09/30/19 23:45 99 H 21 134/93 98 09/30/19 23:31 85 22 134/81 98 09/30/19 23:30 85 16 09/30/19 23:15 86 18 143/92 H 99 09/30/19 23:02 86 18 09/30/19 23:01 107 H 20 136/100 89 L 09/30/19 23:00 90 19 84 L 09/30/19 22:45 86 19 123/77 97 09/30/19 22:31 99 H 18 97 09/30/19 22:30 93 H 20 129/80 97 09/30/19 22:25 98.4 F 112 H 18 130/86 99 09/30/19 22:23 95 H 21 130/86 99 Laboratory Results Laboratory Results WBC 7.21 K/uL (4.8-10.8) 09/30/19 22:19 RBC 3.43 M/uL (4.2-5.4) L 09/30/19 22:19 Hgb 10.9 g/dL (12.0-16.0) L 09/30/19 22:19 Hct 33.0 % (37-47) L 09/30/19 22:19 MCV 96.2 fL (80-100) 09/30/19 22:19 MCH 31.8 pg (25-34) 09/30/19 22:19 MCHC 33.0 g/dL (32-36) 09/30/19 22:19 RDW Std Deviation 45.4 fL (36.4-46.3) 09/30/19 22:19 RDW Coeff of Miguel 13.1 % (11.5-14.5) 09/30/19 22:19 Plt Count 184 K/uL (130-400) 09/30/19 22:19 MPV 9.9 fL (7.4-10.4) 09/30/19 22:19 Immature Gran % (Auto) 0.1 % 09/30/19 22:19 Neut % (Auto) 86.4 % 09/30/19 22:19 Lymph % (Auto) 8.3 % 09/30/19 22:19 [place] % (Auto) 5.0 % 09/30/19 22:19 Eos % (Auto) 0.1 % 09/30/19 22:19 Baso % (Auto) 0.1 % 09/30/19 22:19 Neut # (Auto) 6.22 K/uL (1.4-6.5) 09/30/19 22:19 Lymph # (Auto) 0.60 K/uL (1.2-3.4) L 09/30/19 22:19 [place] # (Auto) 0.36 K/uL (0.11-0.59) 09/30/19 22:19 Eos # (Auto) 0.01 K/uL (0-0.5) 09/30/19 22:19 Baso # (Auto) 0.01 K/uL (0-0.2) 09/30/19 22:19 Immature Gran # (Auto) 0.01 K/uL (0.00-0.02) 09/30/19 22:19 PT 12.2 Seconds (9.0-12.0) H 09/30/19 22:19 INR 1.2 (0.9-1.1) H 09/30/19 22:19 APTT 28.8 Seconds (21.0-31.0) 09/30/19 22:19 PTT Ratio 1.0 09/30/19 22:19 Sodium 137 mmol/L (136-145) 09/30/19 22:19 Potassium 4.1 mmol/L (3.5-5.1) 09/30/19 22:19 Chloride 106 mmol/L (98-107) 09/30/19 22:19 Carbon Dioxide 21 mmol/L (21-32) 09/30/19 22:19 Anion Gap 10.0 (3-11) 09/30/19 22:19 BUN 28 mg/dl (7-18) H 09/30/19 22:19 Creatinine 1.29 mg/dl (0.6-1.2) H 09/30/19 22:19 Est Cr Clr Drug Dosing 24.7 ml/min 09/30/19 22:19 Est GFR ( Amer) 42.5 09/30/19 22:19 Est GFR (Non-Af Amer) 36.7 09/30/19 22:19 BUN/Creatinine Ratio 21.5 (10-20) H 09/30/19 22:19 Glucose 116 mg/dl (70-99) H 09/30/19 22:19 Calcium 8.7 mg/dl (8.5-10.1) 09/30/19 22:19 Magnesium 1.7 mg/dl (1.8-2.4) L 09/30/19 22:19 Total Bilirubin 0.6 mg/dl (0.2-1) 09/30/19 22:19 AST 32 U/L (15-37) 09/30/19 22:19 ALT 16 U/L (12-78) 09/30/19 22:19 Alkaline Phosphatase 40 U/L (45-117) L 09/30/19 22:19 Total Creatine Kinase 175 U/L (26-192) 09/30/19 22:19 CK-MB (CK-2) 2.9 ng/ml (0.5-3.6) 09/30/19 22:19 CK/CKMB % Calc 1.7 (0-3.0) 09/30/19 22:19 Troponin I 0.033 ng/ml (0-0.045) 09/30/19 22:19 Total Protein 6.3 gm/dl (6.4-8.2) L 09/30/19 22:19 Albumin 3.2 gm/dl (3.4-5.0) L 09/30/19 22:19 Globulin 3.1 gm/dl (2.5-4.0) 09/30/19 22:19 Albumin/Globulin Ratio 1.0 (0.9-2) 09/30/19 22:19 Diagnostic Findings [facility] Patient: ARMANDO LIN (Female) : 28 Status: ER Date: 09/30/19 22:13 Room #: History: STROKE ALERT Slices: [id number] Priors: Tech: Sánchez Steen @ [phone] Exams: CT HEAD Accession Numbers: [id number] Preliminary Findings Only See Final Report For Complete Findings CT HEAD: No intracranial hemorrhage or acute cortical infarct. MRI is more sensitive if there is persistent concern. Involutional changes and small vessel disease. Radiologist: Alisa Humphrey M.D. Study ready at 22:18 and initial results transmitted at 22:25 Communications: Clear Time Type Notes 09/30/19 22:42 Call Doctor Regarding Stroke, called Dr. Quinteros on 09/29 22:42 (-04:00) *This report constitutes a preliminary interpretation only. Non-acute findings felt to be unrelated to the clinical presentation may not be discussed in this report. The study will be interpreted and a final report will be generated by the local Radiologist the following shift. To reach the hospital radiology department call [phone]. If a discrepancy is found between the preliminary and final interpretations of this study, please notify us via our Client Portal at [email or web address].You can also fax this report with a description of the discrepancy, or include the final report, to our daytime fax number [phone].If faxing, please indicate the severity of discrepancy using one of the following categories: [ ] 1 - Agree/Informational [ ] 2 - Unlikely to Affect Management [ ] 3 - Possible Eventual Change of Management [ ] 4 - Probable Immediate Change of Management For all other patient related information, please fax us at [phone]. [id number] [facility] Patient: ARMANDO LIN (Female) : 28 Status: ER Date: 09/30/19 22:22 Room #: History: STROKE ALERT Slices: [id number] Priors: Tech: Sánchez Steen @ [phone] Exams: CTA NECK Contrast: IV Amt: 115 Accession Numbers: [id number] Preliminary Findings Only See Final Report For Complete Findings CTA NECK: No high-grade stenosis or occlusion. Small focal outpouching of the left vertebral artery at the C1-2 level (image [id number]). Irregular density inseparable from the aortic arch, presumably atherosclerotic disease. Differential considerations include lung nodule or consolidation. Thyroid nodules. Radiologist: Alisa Humphrey M.D. Study ready at 22:25 and initial results transmitted at 22:40 Communications: Clear Time Type Notes 09/30/19 22:42 Call Doctor Regarding Stroke, called Dr. Quinteros on 09/29 22:42 (- 04:00) *This report constitutes a preliminary interpretation only. Non-acute findings felt to be unrelated to the clinical presentation may not be discussed in this report. The study will be interpreted and a final report will be generated by the local Radiologist the following shift. To reach the hospital radiology department call [phone]. If a discrepancy is found between the preliminary and final interpretations of this study, please notify us via our Client Portal at [email or web address].You can also fax this report with a description of the discrepancy, or include the final report, to our daytime fax number [phone].If faxing, please indicate the severity of discrepancy using one of the following categories: [ ] 1 - Agree/Informational [ ] 2 - Unlikely to Affect Management [ ] 3 - Possible Eventual Change of Management [ ] 4 - Probable Immediate Change of Management For all other patient related information, please fax us at [phone]. [id number] [facility] Patient: ARMANDO LIN (Female) : 28 Status: ER Date: 09/30/19 22:23 Room #: History: STROKE ALERT Slices: [id number] Priors: Tech: Sánchez Steen @ [phone] Exams: CTA HEAD Contrast: IV Amt: 115 Accession Numbers: [id number] Preliminary Findings Only See Final Report For Complete Findings CTA HEAD: The A1 segment of the right SAYDA is not well visualized, may be hypoplastic or occluded. Severe stenosis or occlusion of the A3 segment of the right SAYDA also noted. Compare to prior imaging if available. Otherwise, no large vessel occlusion. Radiologist: Alisa Humphrey M.D. Study ready at 22:25 and initial results transmitted at 22:33 Communications: Clear Time Type Notes 09/30/19 22:42 Call Doctor Regarding Stroke, called Dr. Quinteros on 09/29 22:42 (-04:00) *This report constitutes a preliminary interpretation only. Non-acute findings felt to be unrelated to the clinical presentation may not be discussed in this report. The study will be interpreted and a final report will be generated by the local Radiologist the following shift. To reach the hospital radiology department call [phone]. If a discrepancy is found between the preliminary and final interpretations of this study, please notify us via our Client Portal at [email or web address].You can also fax this report with a description of the discrepancy, or include the final report, to our daytime fax number [phone].If faxing, please indicate the severity of discrepancy using one of the following categories: [ ] 1 - Agree/Informational [ ] 2 - Unlikely to Affect Management [ ] 3 - Possible Eventual Change of Management [ ] 4 - Probable Immediate Change of Management For all other patient related information, please fax us at [phone]. [id number] Code Status & VTE Plan Code Status Full code VTE Prophylaxis Plan VTE Prophylaxis will be ordered: Yes PG Care Time/CCT Total # of Minutes Spent Total Time Spent with Patient: Total time spent is greater than 50% in coordination of care (as documented) at patient's floor/unit and/or counseling patient: Coding Level of Care Code 43882 Initial Inpt Care Lvl 3 Diagnoses Acute CVA (cerebrovascular accident) I63.9 Subdural hematoma S06.5X9A Atrial fibrillation I48.91 Atrial fibrillation type: unspecified Cardiac pacemaker in situ Z95.0 Chronic kidney disease N18.9 Dyslipidemia E78.5 Gastroesophageal reflux disease K21.9 Hypertension I10 Glaucoma H40.9 (1) Atrial fibrillation Atrial fibrillation type: unspecified Qualified Code(s): I48.91 - Unspecified atrial fibrillation
--- NOTE | 2019-10-01 06:23 | XRay Report ---
XR hip LT 2V w pelvis CLINICAL HISTORY: fall trauma. Pain. COMPARISON: None. DISCUSSION: The bones and joint spaces appear intact. There is no evidence of fracture, dislocation o r bony disease. There is no evidence for soft tissue swelling. IMPRESSION: Negative study. ACT 112: Negative or not required by law. The above report was generated using voice recognition software. It may contain grammatical, syntax or spelling errors. Electronically signed by: Cade Berumen M.D. 10/01/2019 6:22 AM
--- NOTE | 2019-10-01 06:25 | CT Scan Report ---
CT head/brain wo con CT DOSE: HISTORY: Mental status change Stroke evaluation TECHNIQUE: Multiaxial CT images of the head were performed without the use of intravenous contrast. A dose lowering technique was utilized adhering to the principles of ALARA. Comparison: None. Findings: The paranasal sinuses and mastoid air cells are clear. The calvarium and skull base are int act. The ventricles and sulci are within normal limits. There is no mass, hematoma, midline shift, or acute infarct. Age-related atrophy and chronic small vessel change Impression: No acute intracranial abnormality. Age-related atrophy and chronic small vessel change ACT 112: Negative or not required by law. The above report was generated using voice recognition software. It may contain grammatical, syntax or spelling errors. Electronically signed by: Cade Berumen M.D. 10/01/2019 6:23 AM
--- NOTE | 2019-10-01 06:36 | XRay Report ---
XR chest 1V portable CLINICAL HISTORY: weak dyspnea COMPARISON STUDY: 06/25/2019 FINDINGS: Moderate stable cardiomegaly. Bipolar cardiac pacer in good position. Lungs are clear. Diap hragms are smooth. IMPRESSION: Moderate stable cardiomegaly. No acute process. ACT 112: Negative or not required by law. The above report was generated using voice recognition software. It may contain grammatical, syntax or spelling errors. Electronically signed by: Cade Berumen M.D. 10/01/2019 6:35 AM
--- NOTE | 2019-10-01 06:47 | XRay Report ---
XR knee LT 1 or 2V routine CLINICAL HISTORY: fall trauma. Pain. COMPARISON: None. DISCUSSION: Generalized degenerative change all major joint compartments. Several synovial calcificat ions. Chondrocalcinosis. Peripheral osteophyte formation throughout. There is no evidence for soft ti ssue swelling. IMPRESSION: Generalized degenerative change. Chondrocalcinosis. No acute posttraumatic abnormality. ACT 112: Negative or not required by law. The above report was generated using voice recognition software. It may contain grammatical, syntax or spelling errors. Electronically signed by: Cade Berumen M.D. 10/01/2019 6:45 AM
[2019-10-01 07:16] LABS: Basophils # (auto) 0.01 K/uL (0-0.2); Basophils % (auto) 0.1 %; Eosinophils # (auto) 0.12 K/uL (0-0.5); Eosinophils % (auto) 1.7 %; Hematocrit (blood only) 34.9 % (37-47); Hemoglobin 11.5 g/dL (12.0-16.0); Immature Granulocytes # (auto) 0.01 K/uL (0.00-0.02); Immature Granulocytes % (auto) 0.1 %; Lymphocytes # (auto) 0.82 K/uL (1.2-3.4); Lymphocytes % (auto) 11.4 %; Mean Corpuscular Hemoglobin 31.9 pg (25-34); Mean Corpuscular Volume 96.7 fL (80-100); Monocytes % (auto) 9.7 %; Neutrophils # (auto) 5.53 K/uL (1.4-6.5); Platelet Count 181 K/uL (130-400); RDW Coefficient of Variation 13.2 % (11.5-14.5); RDW Standard Deviation 46.6 fL (36.4-46.3); Red Blood Count 3.61 M/uL (4.2-5.4); White Blood Count 7.19 K/uL (4.8-10.8)
[2019-10-01 07:28] LABS: Estimated Average Glucose 120 mg/dl; Hemoglobin A1C 5.8 % (4.5-5.6)
--- NOTE | 2019-10-01 07:33 | CT Scan Report ---
CT angio neck with con HISTORY: Mental status change Stroke evaluation TECHNIQUE: Multiaxial CT angiography of the neck was performed IV contrast: 120 cc nonionic All judit urements were calculated based on NASCET criteria. Maximum intensity projection images were also obt ained. A dose lowering technique was utilized adhering to the principles of ALARA. COMPARISON STUDY: None. FINDINGS: Considerable atherosclerotic change of the thoracic aorta plaque formation of the carotid b ifurcations as well as vertebral basilar system. 50% narrowing of the mid left vertebral artery. No high-grade or critical stenosis. 30% narrowing of the carotid bifurcations with no high-grade stenotic process. IMPRESSION: 1. Mild 30-50% narrowing of the carotid bifurcations as well as mid left vertebral artery. 2. No evidence for high-grade stenotic process. 3. Multinodular thyroid ACT 112: Negative or not required by law. The above report was generated using voice recognition software. It may contain grammatical, syntax or spelling errors. Electronically signed by: Cade Berumen M.D. 10/01/2019 7:31 AM
[2019-10-01 07:52] LABS: Calcium 9.2 mg/dl (8.5-10.1); Creatinine Clr Calc Pharmacy 28.5 ml/min; Est GFR (African American) 53.9; Est GFR (Non-African American) 46.5; Potassium 3.9 mmol/L (3.5-5.1)
--- NOTE | 2019-10-01 08:18 | CT Scan Report ---
CTA ANGIOGRAPHY OF THE HEAD CLINICAL HISTORY: Stroke evaluation COMPARISON STUDY: CTA of the head June 29, 2014. Head CT August 25, 2019. TECHNIQUE: Helical axial images of the head were obtained following uneventful intravenous administr ation of 115 cc of Optiray 320. Sagittal and coronal reconstructions were viewed as well as maximal i ntensity projections on an independent 3-D workstation. Automated exposure control was utilized for the study. A dose lowering technique was utilized adhering to the principles of ALARA. FINDINGS: No acute intracranial hemorrhage, midline shift or mass effect is present. Ventricular syst em is stable. Basilar cisterns are patent. There are no extra axial collections. White matter hypoden sity suggests small vessel disease. There is moderate plaque within the bilateral cavernous carotids. The right A1 segment is hypoplastic. This is similar to CTA of June 29, 2014. There is occlusion wit h distal reconstitution of the A3 segment of the right anterior cerebral artery. This is new since CT A of June 29, 2014. No additional sites of vessel occlusion are noted. Posterior circulation is intac t. There is no dissection or intracranial aneurysm. IMPRESSION: 1. 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 2. Hypoplastic right A1 segment. 3. No intracranial aneurysm. ACT 112: Negative or not required by law. Electronically signed by: Zion Reyna M.D. 10/01/2019 8:17 AM
[2019-10-01] MEDS: DORZOLAMIDE/TIMOLOL 22.3/6.8MG/ML 10 ML BTL OP SCH ×2 (08:55→20:38)
--- NOTE | 2019-10-01 09:54 | Neurology Consultation ---
Date of Consultation October 01, 2019 Assessment & Plan (1) Acute CVA (cerebrovascular accident): (2) Aphasia due to acute stroke: (3) Subdural hematoma: (4) Acute right hemiparesis: (5) Permanent atrial fibrillation: This patient has had an acute left hemispheric CVA of uncertain size. It is likely embolic given her history of permanent a fibrillation and recent discontinuation of anticoagulation her early August of this year. Clinically she has a right lanette paresis of a moderate nature face > arm > leg. She has improved with her strength today compared to her presentation last night. In addition, she has a significant aphasia, which is at least motor but possibly receptive as well. Complicating this is her severe hearing loss (even probable with the hearing aids in) and language issues (Italian is her [place] language). In addition, there have been some concerns regarding mentation and memory more recently and I cannot exclude an underlying dementia. Patient has a history of left subdural hematoma of the small nature discovered late July of this year. Anticoagulation was stopped at that time. CT scan of the head on admission yesterday showed no evidence of subdural hematoma currently. I spent additional time speaking with 2 of her 3 sons regarding her case. Her 1 son called her and spoke with her over the phone. He got back to me and stated that her language ability is very difficult to understand. In addition, I spoke to Dr. Ruy Piña, stroke neurologist at [facility] regarding this case. He had done the tele stroke with her last evening and was familiar with her. Given her atrial fibrillation and other medical conditions as well as advanced age she is at very high risk for stroke. She does have a bleed risk and fall risk but I think the stroke risk outweighs this. Recommendations: 1. Repeat CT scan of the head without contrast today. Unfortunately, I do not believe her pacemaker is MRI compatible-if it is I would prefer an MRI of the brain. 2. If the CT scan of the head (or MRI) shows no abnormalities we will obtain an EEG routine, to see if there is any underlying seizure activity present. 3. If the CT scan of the head (or MRI) shows a relatively small stroke then I would be inclined to initiate an anticoagulant (preferably apixaban) 4. If the CT scan of the head (or MRI) shows a moderate to large stroke, then I would be inclined to hold on anticoagulant for another week or 2 (up to 4 weeks depending on size) and initiate the anticoagulant. 5. Keep mean arterial blood pressure approximately 95 to 100, as you are doing. 6. Given the patient's advanced age, history of subdural hematoma, and quite low lipid numbers, I do not see need for a statin at this time. There is an increased stroke risk with this medication. 7. Physical, occupational, and speech therapy. Increase activity as able. Overall, I spent a total of 115 minutes with this case including review of records, review of CT films, direct evaluation of patient at bedside, and discussing the case with the RN at bedside, 2 sons over the telephone (1 of which is a basket mender), Dr. Piña, from [facility], and Dr. Camargo, including differential diagnosis and treatment options. History of Present Illness Reason for Consultation: Patient is an 88-year-old, who I was asked to see at the request of Dr. Mock, for neurologic consultation regarding stroke Requesting Physician: Dr. Mock Attending Physician: Anil Camargo, DO History of Present Illness Patient is an 88-year-old who had some sort of stroke about 8 years ago and was noted to have atrial fibrillation. She was put on a permanent pacer. Other cardiac issues include sick sinus syndrome, as well as tricuspid and mitral regurgitation. These have been stable. Patient had been on warfarin. She lives at the [facility] at [facility]. On July 19 she fell apparently hitting the back of her head. A CT scan at that time showed a scalp hematoma and laceration that required yuliet. She was doing fairly well overall when in late July her son felt that she was having trouble with word finding/slurred speech/inability to communicate properly/decreased recall. On August [address] scan of the head showed a 5 mm left frontoparietal convexity subdural hematoma. CT scan of the cervical spine was unremarkable. There was no history of additional fall. She was transferred to [facility] and Coumadin was discontinued. There was consideration of increased ventricular size suggesting normal pressure hydrocephalus instead of hydrocephalus ex vacuo. An EEG was normal during the wakeful state. She has been off warfarin since. Because of her fall risk/risk of hemorrhage versus her overall stroke risk (of approximately 10% per year) there was considerable debate regarding whether or not to restart the Coumadin. There was a decision to likely restart this after a repeat CT scan of the head showed no further dural hematoma but this CT had not been obtained yet. Patient was found in her room on the floor not moving her right side last evening. She arrived to the emergency room on July 30 at 2223 with a temperature 36.9, pulse 95 and in AFib, respiratory rate 21, blood pressure 130/86, and O2 saturation 99%. She has been chronically in AFib since admission with a controlled rate around the 70s. On neurologic examination she had slow speech and had some difficulty communicating. There was a dense right lanette paresis with inability to move the right arm and leg. She had a tele Stroke consultation with Ruy Piña MD from [facility]. She was given 300 mg of aspirin and 1 g of Keppra on the outside chance that perhaps this was a seizure with postictal state. CBC showed anemia. Chem profile showed a glucose of 116 and elevated BUN and creatinine. CT scan of the head showed no acute changes and no evidence of left over subdural hematoma. CT angiography of the head and neck revealed some stenosis in the right anterior carotid artery, 30-50% stenosis at the origins of the internal carotid arteries as well as left mid vertebral artery. Chest x-ray showed moderate cardiomegaly. Plain x-ray showed no left hip fracture (complaining of some left hip pain also) Nursing reports no new events overnight and her rhythm has been stable. Blood pressure this morning is 113/74. She is afebrile. CBC shows anemia but improved from yesterday. Chem profile this morning showed a normal creatinine and glucose of 86. Hemoglobin A1c was 5.8 and lipid profile showed total cholesterol of 142 and triglycerides of 73. She is not on a statin. The patient herself has no complaints of pain or headache. It is clear she needs her hearing aids and without them she cannot follow commands or answer questions well. Allergies Allergy/AdvReac Type Severity Reaction Status Date / Time No Known Drug Allergies Allergy Unknown . Verified 10/01/19 03:23 Home Medications Home Medications Medication Instructions Recorded Confirmed Type multivitamin 1 tab PO DAILY 10/28/18 09/30/19 History acetaminophen 500 mg tablet 500 mg PO Q4H PRN tab 11/06/18 09/30/19 History metoprolol succinate 50 mg 50 mg PO DAILY #90 tab 03/05/19 09/30/19 Rx tablet,extended release 24 hr spironolactone 25 mg tablet 50 mg PO DAILY #60 tab 04/10/19 09/30/19 Rx bimatoprost [Lumigan] 1 drp OPHTHALMIC (EYE) HS 07/20/19 09/30/19 History lidocaine 1 patch TOPICAL .COMPLEX PRN 07/20/19 09/30/19 History warfarin 0 mg PO UD 07/20/19 09/30/19 History lisinopril 20 mg tablet 20 mg PO BID #180 tab 08/10/19 09/30/19 Rx dorzolamide 22.3 mg-timolol 6.8 1 drops OP BID 08/15/19 09/30/19 History mg/mL eye drops meclizine 25 mg tablet 25 mg PO DAILY PRN 08/15/19 09/30/19 History tolterodine 4 mg capsule,extended 4 mg PO DAILY cap 09/21/19 09/30/19 History release 24 hr Ranitidine 150 mg PO DAILY 09/30/19 09/30/19 History calcium carbonate [Calcium 500] 500 mg PO DAILY 09/30/19 09/30/19 History conjugated estrogens [Premarin] 0.625 mg VAGINAL .3-4XSWK 09/30/19 09/30/19 History felodipine 5 mg PO DAILY 09/30/19 09/30/19 History flaxseed oil 1,000 mg PO DAILY 09/30/19 09/30/19 History pravastatin 20 mg PO DAILY 09/30/19 09/30/19 History Patient History Medical History Gait disturbance (Acute) Gastroesophageal reflux disease (Acute) Glaucoma Hepatic cyst (Acute) Hyperglycemia (Acute) Mitral regurgitation Osteoarthritis (Chronic) Pacemaker (Inactive) Permanent atrial fibrillation (Chronic) Pigmented skin lesions Post-menopausal atrophic vaginitis Right knee pain Sick sinus syndrome Tricuspid regurgitation Surgical History History of colonoscopy History of permanent cardiac pacemaker placement Family History Mother Hypertension Denies family history of Ovarian cancer Prostate cancer Breast cancer Lung cancer Colorectal cancer Social History Preferred Language: Togolese Communication Ability: Effective Visual Impairment: Limited Hearing Ability: Use of Hearing Aid Equipment Maintenance Technician Required: Video and No marital status: Single Current Living Situation: Personal Care Facility Current Living Situation Comment: [facility] current occupational status: retired Feels Safe at Home: Yes Smoking Status: Never smoker Hx Alcohol Use: No Hx Substance Use: No Childhood Exposure to Second-Hand Smoke: Yes caffeine: Yes Dental Care, Regularly: Yes Physical Activity Frequency: 3-4 Times per Week Physical Activity Frequency Comment: walk/works out at gym Seatbelt Use: always Sunscreen Use: No (not in the sun) Review of Systems Review of Systems: Other (Review of systems was unable to be obtained because of the patient's language barrier (nose [place] language is Italian) and probable aphasia (at least motor but possibly receptive as well)) Exam (Neuro) Physical Exam: The patient is right-handed. The patient is awake, alert, and attentive. Speech is very difficult to understand. I believe she has an expressive aphasia but she may also have a bit of receptive aphasia. Also, I cannot be certain of any mild dysarthria. She seems to be in a normal mood and affect and she is pleasant and cooperative following some 1 step commands. Other one-step commands see more difficult for her to follow. Appearance and grooming are normal. I cannot assess her true cognitive status in lieu of the a facial and hearing loss with language issues. The discs are sharp with positive venous pulsations bilaterally. There are no exudates, hemorrhages, or blood vessel changes seen. Pupils are 4 mm bilaterally and reactive to light. Extraocular eye muscles are intact without nystagmus. Visual acuity and visual landry seem normal grossly to confrontation. I do not detect homonymous hemianopsia otherwise. There are no deficits to sensation in the face in all 3 distributions of the fifth cranial nerve bilaterally. Corneal reflexes are positive bilaterally. There is a facial droop at the corner of the mouth on the right which will not move with voluntary smile. Forehead is spared bilaterally. Hearing is markedly decreased bilaterally and she wears hearing aids. Even with the hearing aids I am not certain she hears well. Palate moves well without asymmetry. There is normal sternocleidomastoid and trapezius (shoulder shrug) strength bilaterally. Tongue is midline. Neck has a full range of motion without discomfort. There are no cervical bruits bilaterally. There are no cranial or ocular bruits. Heart is without murmur. There is a regular rhythm and rate. Cervical, thoracic, and lumbar spine are nontender to palpation. Gait is not testable and her stance sitting up in bed is poor and she falls quickly to the right. With outstretched arms there is significant drift on the right. There are no resting, postural, or action tremors. There is no ataxia with finger to nose testing. There is decreased facility in the right hand. No other abnormal involuntary movements are noted. Motor strength is essentially 5/5 diffusely in the left arm and leg both proximally and distally as best as I can ascertain from examination. Strength is 4/5 proximally in the right arm and leg and 3/5 distally with poor small muscle movements in the hand and foot. The limbs have good tone without rigidity or spasticity. There is no atrophy noted in the muscles. Muscle bulk is normal, there is no tenderness to palpation, no myotonia to percussion, and no fasciculations seen. Sensory examination is intact to touch and pin throughout all 4 limbs diffusely. Reflexes are 1/4 in the biceps, triceps, brachioradialis, quadriceps, and Achilles tendons bilaterally. There is no clonus bilaterally. Toes are downgoing with plantar stimulation bilaterally. Peripheral pulses are present and of normal quality distally in all 4 limbs. There is no peripheral edema noted in the limbs. Results & Data ([facility]) Vital Signs (Past 12 Hours) Vital Signs Temp Pulse Pulse Resp BP BP BP 10/01/19 07:00 36.4 C L 66 16 113/74 10/01/19 04:06 78 10/01/19 02:30 36.5 C 78 16 113/78 10/01/19 02:01 65 17 10/01/19 02:00 60 21 127/71 10/01/19 01:31 74 15 10/01/19 01:30 69 16 114/72 10/01/19 01:01 81 19 10/01/19 01:00 82 17 123/84 10/01/19 00:31 72 17 10/01/19 00:30 65 17 122/68 10/01/19 00:20 84 20 110/80 10/01/19 00:01 84 21 10/01/19 00:00 88 20 141/88 H 09/30/19 23:45 99 H 21 134/93 09/30/19 23:31 85 22 134/81 09/30/19 23:30 85 16 09/30/19 23:15 86 18 143/92 H 09/30/19 23:02 86 18 09/30/19 23:01 107 H 20 136/100 09/30/19 23:00 90 19 09/30/19 22:45 86 19 123/77 09/30/19 22:31 99 H 18 09/30/19 22:30 93 H 20 129/80 09/30/19 22:25 36.9 C 112 H 18 130/86 09/30/19 22:23 95 H 21 130/86 Pulse Ox 10/01/19 07:00 98 10/01/19 04:06 10/01/19 02:30 96 10/01/19 02:01 99 10/01/19 02:00 95 10/01/19 01:31 96 10/01/19 01:30 96 10/01/19 01:01 96 10/01/19 01:00 94 10/01/19 00:31 96 10/01/19 00:30 96 10/01/19 00:20 97 10/01/19 00:01 97 10/01/19 00:00 09/30/19 23:45 98 09/30/19 23:31 98 09/30/19 23:30 09/30/19 23:15 99 09/30/19 23:02 09/30/19 23:01 89 L 09/30/19 23:00 84 L 09/30/19 22:45 97 09/30/19 22:31 97 09/30/19 22:30 97 09/30/19 22:25 99 09/30/19 22:23 99 PG Care Time/CCT Total # of Minutes Spent Total Time Spent with Patient: Total time spent is greater than 50% in coordination of care (as documented) at patient's floor/unit and/or counseling patient: Coding Level of Care Code 51378 Initial Inpt Care Lvl 3 Diagnoses Acute CVA (cerebrovascular accident) I63.9 Aphasia due to acute stroke I63.9; R47.01 Subdural hematoma S06.5X9A Acute right hemiparesis G81.91 Permanent atrial fibrillation I48.2 Time Spent (min) 115 Comment Add [id number] to the [id number]
--- NOTE | 2019-10-01 14:39 | CT Scan Report ---
CT head/brain wo con CLINICAL HISTORY: 88 years-old Female with stroke. Acute strokelike symptoms TECHNIQUE: Multiple axial CT images of the head were obtained without contrast. A dose lowering tech nique was utilized adhering to the principles of ALARA. CT DOSE: 614.27 mGy.cm COMPARISON: Head CT 09/30/2019 FINDINGS: No acute intracranial hemorrhage, midline shift, intracranial mass, hydrocephalus, territorial ischem ia or abnormal extra-axial collection. Age-related involutional changes with ex vacuo ventriculomegal y. Patchy white matter hypodensities suggest chronic microvascular ischemic disease. Cerebral vascula r calcifications. Ill-defined subcentimeter hypodensity of the left thalamus may reflect chronic micr ovascular ischemic disease versus age-indeterminate lacunar infarct. The calvarium is intact. Right ethmoid air cell osteoma, 7 mm. Mastoid air cells are generally clear . IMPRESSION: No acute intracranial abnormality. ACT 112: Negative or not required by law. The above report was generated using voice recognition software. It may contain grammatical, syntax o r spelling errors. Electronically signed by: Juan Francisco Champagne M.D. 10/01/2019 2:37 PM
--- NOTE | 2019-10-01 15:29 | Electroencephalogram ---
EEG Procedure Note Date of Service October 01, 2019 Start / End Times Start Time: 1335 End Time: [address] Camargo History 88-year-old with acute left hemispheric stroke and unresponsive state, question seizure with postictal state also Home Medication List Home Medications Medication Instructions Recorded Confirmed Type multivitamin 1 tab PO DAILY 10/28/18 09/30/19 History acetaminophen 500 mg tablet 500 mg PO Q4H PRN tab 11/06/18 09/30/19 History metoprolol succinate 50 mg 50 mg PO DAILY #90 tab 03/05/19 09/30/19 Rx tablet,extended release 24 hr spironolactone 25 mg tablet 50 mg PO DAILY #60 tab 04/10/19 09/30/19 Rx bimatoprost [Lumigan] 1 drp OPHTHALMIC (EYE) HS 07/20/19 09/30/19 History lidocaine 1 patch TOPICAL .COMPLEX PRN 07/20/19 09/30/19 History warfarin 0 mg PO UD 07/20/19 09/30/19 History lisinopril 20 mg tablet 20 mg PO BID #180 tab 08/10/19 09/30/19 Rx dorzolamide 22.3 mg-timolol 6.8 1 drops OP BID 08/15/19 09/30/19 History mg/mL eye drops meclizine 25 mg tablet 25 mg PO DAILY PRN 08/15/19 09/30/19 History tolterodine 4 mg capsule,extended 4 mg PO DAILY cap 09/21/19 09/30/19 History release 24 hr Ranitidine 150 mg PO DAILY 09/30/19 09/30/19 History calcium carbonate [Calcium 500] 500 mg PO DAILY 09/30/19 09/30/19 History conjugated estrogens [Premarin] 0.625 mg VAGINAL .3-4XSWK 09/30/19 09/30/19 History felodipine 5 mg PO DAILY 09/30/19 09/30/19 History flaxseed oil 1,000 mg PO DAILY 09/30/19 09/30/19 History pravastatin 20 mg PO DAILY 09/30/19 09/30/19 History Inpatient Medication List Dorzolamide/Timolol (Cosopt) 1 drops OP BID RORY Stop: 10/31/19 08:59 Last Admin: 10/01/19 08:55 Dose: 1 drops Documented by: [id number] Sodium Chloride (Nss 1000ml) 1,000 mls @ 80 mls/hr IV .[id number] RORY Stop: 10/31/19 03:16 Last Admin: 10/01/19 03:25 Dose: 80 mls/hr Documented by: [id number] Ioversol (Optiray 320 125ml) 115 ml IV ONCE PRN PRN Reason: Interaction Checking Stop: 10/04/19 22:17 Last Admin: 09/30/19 22:18 Dose: 115 ml Documented by: [id number] Discontinued Medications Aspirin (Aspirin) 300 mg WV ONE ONE Stop: 09/30/19 23:27 Last Admin: 09/30/19 23:41 Dose: 300 mg Documented by: [id number] Magnesium Sulfate/Dextrose (Magnesium Sulfate / D5w) 1 gm in 100 mls @ 100 mls/hr IV Q1H RORY Stop: 10/01/19 01:25 Last Infusion: 10/01/19 03:27 Dose: 100 mls/hr Documented by: [id number] Infusion: 10/01/19 00:55 Dose: 0 mls/hr Documented by: [id number] Admin: 10/01/19 00:34 Dose: 100 mls/hr Documented by: [id number] Infusion: 10/01/19 00:33 Dose: 0 mls/hr Documented by: [id number] Admin: 09/30/19 23:31 Dose: 100 mls/hr Documented by: [id number] Sodium Chloride (Nss 1000ml) 500 mls @ 999 mls/hr IV .Q31M ONE Stop: 09/30/19 23:56 Last Infusion: 10/01/19 00:34 Dose: 0 mls/hr Documented by: [id number] Admin: 09/30/19 23:33 Dose: 999 mls/hr Documented by: [id number] Levetiracetam 1,000 mg/ Sodium (Chloride) 110 mls @ 440 mls/hr IV NOW STA Stop: 10/01/19 00:02 Last Infusion: 10/01/19 00:50 Dose: 0 mls/hr Documented by: [id number] Admin: 10/01/19 00:34 Dose: 440 mls/hr Documented by: [id number] Description This is a 21 electrode EEG with a single channel dedicated to limited EKG. The electrodes were placed in accordance with the International 10-20 system. Interpretation The predominant background activity consists of irregular 8 Hz activity, of up to 40 mV in amplitude,seen symmetrically distributed over the posterior head regions bilaterally from time to time particularly during alerting procedures. Otherwise the background activity consisted of a somewhat irregular 6 hertz activity of up to 50 microvolts in amplitude seen in all head regions diffusely. Amplitude with dampened some with alerting procedures. Photic stimulation was performed and elicited no change in the background activity and no abnormal responses were seen. Hyperventilation was not performed. A minimal amount of muscle and movement artifact activity contaminated the recording and did not hinder interpretation to any significant degree. Throughout the recording I could not detect any focal abnormalities or potentially epileptogenic discharges. In summary, this EEG was mildly abnormal as noted by some irregular diffuse slow activity. No focal abnormalities were noted and no potentially epileptogenic discharges were seen. Clinical Correlation The abscence of potentially epileptogenic activity does not exclude a seizure disorder, since interictally, EEGs can be normal. Clinical correlation is required. The mild abnormal slow activity is nonspecific and likely due to a mild encephalopathy which could be due to a wide variety of causes. Again, clinical is required. [facility] Procedure Codes Indication for Procedure (1) Aphasia due to acute stroke: (2) Encephalopathy: Neurology Neurology: [id number] EEG include record awake & drowsy
--- NOTE | 2019-10-01 20:38 | History & Physical Bridge Note ---
Date of Service October 01, 2019 History & Physical Bridge Note I have examined the patient, reviewed the History & Physical and in the interval since the performance of the History & Physical I have noted the following changes of clinical significance: discussed case at length with Dr. Beltran he had a long talk with patient's son's and updated them patient clearly with clinical signs of stroke, right sided motor deficit, aphasia, dysphagia evaluated by speech therapy, she will be NPO for now repeat CT head today with no evidence of stroke, pacemaker placed in 2000, unlikely MRI compatible, will double check tomorrow EEG today with some general slowing but no seizure activity will discuss further with Dr Beltran tomorrow ultimate plan will be for secondary stroke prevention will need anticoagulation due to atrial fibrillation blood pressure control will likely need stroke rehab based on her deficits
[2019-10-01] MEDS: BIMATOPROST 0.01% OP SOLN 2.5 ML BTL OP SCH (20:39)
[2019-10-02] MEDS: SODIUM CHLORIDE 0.9% 1000ML 1,000 ML IV SCH ×2 (05:32→17:51)
--- NOTE | 2019-10-02 06:08 | Electrocardiogram Report ---
Test Reason : Blood Pressure : / mmHG Vent. Rate : 107 BPM Atrial Rate : 182 BPM P-R Int : 000 ms QRS Dur : 098 ms QT Int : 354 ms P-R-T Axes : 000 045 -38 degrees QTc Int : 472 ms Atrial fibrillation with rapid ventricular response Abnormal ECG When compared with ECG of 25-AUG-2019 10:17, Ventricular paced complexes are no loner present Vent. rate has increased BY 37 BPM Confirmed by Axel Fox ([id number]) on 10/02/2019 6:07:34 AM Referred By: [facility] Confirmed By:Axel Fox
[2019-10-02] MEDS ORDERED: ASPIRIN 300 MG SUPP PR ONE (07:50)
[2019-10-02 07:51] LABS: Basophils # (auto) 0.02 K/uL (0-0.2); Basophils % (auto) 0.3 %; Hematocrit (blood only) 38.5 % (37-47); Hemoglobin 12.3 g/dL (12.0-16.0); Lymphocytes # (auto) 0.84 K/uL (1.2-3.4); Lymphocytes % (auto) 12.5 %; Mean Corpuscular Hemoglobin 31.2 pg (25-34); Mean Corpuscular Hgb Conc 31.9 g/dL (32-36); Mean Corpuscular Volume 97.7 fL (80-100); Mean Platelet Volume 9.6 fL (7.4-10.4); Monocytes # (auto) 0.45 K/uL (0.11-0.59); Monocytes % (auto) 6.7 %; Neutrophils # (auto) 5.21 K/uL (1.4-6.5); Neutrophils % (auto) 77.5 %; Platelet Count 197 K/uL (130-400); RDW Coefficient of Variation 13.1 % (11.5-14.5); RDW Standard Deviation 47.1 fL (36.4-46.3); Red Blood Count 3.94 M/uL (4.2-5.4); White Blood Count 6.72 K/uL (4.8-10.8)
[2019-10-02 08:34] LABS: BUN Creatinine Ratio 13.2 (10-20); Calcium 8.9 mg/dl (8.5-10.1); Creatinine Clr Calc Pharmacy 32.4 ml/min; Est GFR (African American) 61.5; Est GFR (Non-African American) 53.1; Potassium 3.8 mmol/L (3.5-5.1)
[2019-10-02] MEDS: DORZOLAMIDE/TIMOLOL 22.3/6.8MG/ML 10 ML BTL OP SCH ×2 (09:07→21:09)
--- NOTE | 2019-10-02 09:39 | Neurology Progress Note ---
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 I suspect an acute left hemispheric stroke creating what appears to be a right lanette paresis (now improving) with a motor a facial. The patient seems to understand very well. Although a seizure cannot be excluded, I have not seen a Bay's paralysis with a persistent motor aphasia as the unilateral weakness improved. Today her weakness is improved compared to yesterday. There are no signs of encephalopathy/delirium today. I cannot entirely exclude an underlying dementia however. [place] is her [place] language but she does know Serbian very well. Patient had a history of left, small subdural hematoma that has now clinically resolved. She was on warfarin prior to the subdural hematoma but was not put back on prior to this stroke. CT scan show old small vessel ischemia as well. She has persistent atrial fibrillation with a pacemaker. I spoke with Dr. Layton and apparently her pacemaker is not MRI compatible. Recommendations: 1. Unfortunately, I believe it is best to not obtain an MRI of the brain at this time. Also, I am not certain what it would change clinically. 2. Given her old small vessel ischemic change on CT 81 milligram aspirin tablet daily would be the treatment of choice. 3. Given the persistent atrial fibrillation, she is at high stroke risk and anticoagulants should be restarted. According to Dr. Piña (stroke neurologist at [facility]), he would prefer apixaban over warfarin. 4. Control blood pressure as you are doing, aiming for a mean arterial pressure approximately 95-100. 5. Avoid statins for now as there is an increased hemorrhage risk given her age, history of subdural hematoma, and lipid parameters. 6. Continue physical, occupational, and speech therapy. Overall, I spent a total of 45 minutes with this case including review of re cords, review of CT films with Dr. Reyna, direct evaluation the patient at bedside, and discussion of the case with the RN at bedside, and Dr. Camargo, including differential diagnosis and treatment options. Admission and Anticipated Discharge Date Admission Date: October 01, 2019 Subjective Patient has no complaint of headache or pain. She is not dizzy. Blood pressure this morning is 156/64 and she is afebrile. She has had no seizure activity noted since admission. EEG yesterday showed some very mild slowing in general but no focal abnormalities and no potentially epileptogenic discharges. A CT scan of the head yesterday showed no obvious stroke. I spent time with Dr. Reyna in Radiology reviewing CT scans from June, July, and now September. The recent scan shows no convincing evidence for any new stroke but obviously a small stroke would be difficult to see particularly in the posterior fossa. Results & Data ([facility]) Vital Signs (Past 12 Hours) Vital Signs Temp Pulse Pulse Resp BP BP Pulse Ox 10/02/19 07:40 36.8 C 86 16 156/64 H 98 10/02/19 02:52 36.7 C 93 H 19 141/85 H 96 10/02/19 01:08 68 10/01/19 23:30 36.4 C L 17 148/79 H 96 Exam (Neuro) Physical Exam: She is awake and alert. She follows one-step commands very well (much better than yesterday) and is pleasant and smiles. She cannot get words out. When she attempts to say her name I can make out some syllables but it does not sound correct. Mood seems reasonable. Extraocular muscles seem intact without nystagmus. There is a mild facial droop at the corner of the mouth on the right. Otherwise tongue is midline. The patient can lift her right arm and right leg. She has some clumsiness and weakness 4/5 distally. The left side seems closer to 5/. PG Care Time/CCT Total # of Minutes Spent Total Time Spent with Patient: Total time spent is greater than 50% in coordination of care (as documented) at patient's floor/unit and/or counseling patient: Coding Level of Care Code 57015 Subseq Hosp Care Lvl 3 Diagnoses Acute CVA (cerebrovascular accident) I63.9 Aphasia due to acute stroke I63.9; R47.01 Acute right hemiparesis G81.91 Encephalopathy G93.40 Subdural hematoma S06.5X9A Time Spent (min) 45
[2019-10-02] MEDS: BIMATOPROST 0.01% OP SOLN 2.5 ML BTL OP SCH (21:09)
[2019-10-02] MEDS: APIXABAN 2.5 MG TAB PO SCH (21:10)
--- NOTE | 2019-10-02 22:36 | Hospitalist Progress Note ---
Date of Service October 02, 2019 Assessment & Plan (1) Acute CVA (cerebrovascular accident): Admit to monitored bed with stroke without TPA order set. CT head no stroke, repeat CT head on 09/30 also without evidence of stroke CT angiogram without any significant stenosis cannot get MRI due to pacemaker echo normal has known afib, was off her anticoagulation due to recent fall and subdural hematoma improvement in right sided strength, still with expressive aphasia Dr. Beltran discussed with neurology at [place] plan is for Apixiban BID for anticoagulation, aspirin 81mg daily no statin recommended due to her age group, increased risk of bleeding blood pressure control speech, PT/OT consulted doing better plan for SNF rehab tomorrow (2) Subdural hematoma: Subdural hematoma noted on CT of 08/25/2019, is no longer apparent on CT on admission had subdural due to fall, being on Coumadin will use Apixiban instead should have decreased risk of falling at SNF (3) Atrial fibrillation: Atrial fibrillation/hypertension- Patient's warfarin has been discontinued after subdural hematoma noted on 08/25/2019. BP stable off of medications will resume metoprolol due to afib (4) Cardiac pacemaker in situ: not MRI compatable (5) Chronic kidney disease: Creatinine 1.29 upon admission, with range 1.27-1.43 Cr and electrolytes stable, stop IV fluids (6) Dyslipidemia: no further Pravastatin as it would put her at increased risk of bleeding (7) Gastroesophageal reflux disease: Place on famotidine 20 mg IV every 12 hours (8) Hypertension: Allow permissive hypertension (9) Glaucoma: Continue usual eyedrops Admission and Anticipated Discharge Date Admission Date: October 01, 2019 Subjective patient doing better today she is cooperative, understands questions, trying to speak but showing signs of expressive aphasia more strength on right side, both arm/hand and leg did better with swallowing, allowed a diet, soft foods with nectar thick liquids Dr. Beltran updated family today I discussed case with Dr. Beltran, he recommends apixiban for anticoagulation unfortunately we cannot get MRI, but really would not change clinical course d/w CM, patient can go to SNF rehab tomorrow Review of Systems Review of Systems: Unobtainable due to cognitive status (aphasia) Physical Exam Constitutional: WD/WN, vitals as above Eyes: PERRL, conjunctivae normal, anicteric sclerae ENMT: external ear and nose normal, oropharynx normal Neck: trachea midline, no thyromegaly Respiratory: normal respiratory effort, lungs clear to auscultation Cardiovascular: Rate/Rhythm: regular rate and + irregularly irregular Heart Sounds: normal S1 and normal S2; no murmur Vessels: no JVD Extremities: normal capillary refill; no edema Gastrointestinal (Abdomen): normal bowel sounds, soft, nontender, no hepatosplenomegaly Musculoskeletal: Head/Neck/Chest: normocephalic, head atraumatic and neck supple Extremities: extremities normal to inspection and + abnormal strength (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, 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 right leg 4/5 strength) Skin: no rashes, warm and dry Neurologic: normal touch/pain/proprioception, CN's II-XI intact bilaterally, deep tendon reflexes 2+ bilaterally, moves all extremities, + focal motor deficit (right arm, power systems engineer, leg 4/5 strength) and awake Speech / Cognition: + expressive aphasia Motor/Sensory: no tremor and no pronator drift Psychiatric: A+Ox3, euthymic affect Lymphatic: no cervical or axillary lymphadenopathy Results & Data Results & Data ([facility]) Vital Signs (Past 12 Hours) Vital Signs Temp Pulse Pulse Resp BP Pulse Ox 10/02/19 19:20 36.9 C 96 H 18 125/78 95 10/02/19 16:30 81 10/02/19 15:53 36.3 C L 88 20 142/85 H 97 10/02/19 11:32 36.8 C 59 L 16 143/84 H 95 Laboratory Results Laboratory Results - last 24 hr 10/02/19 10/02/19 07:33 07:33 WBC 6.72 RBC 3.94 L Hgb 12.3 Hct 38.5 MCV 97.7 MCH 31.2 MCHC 31.9 L RDW Std Deviation 47.1 H RDW Coeff of Miguel 13.1 Plt Count 197 MPV 9.6 Immature Gran % (Auto) 0.0 Neut % (Auto) 77.5 Lymph % (Auto) 12.5 Finney % (Auto) 6.7 Eos % (Auto) 3.0 Baso % (Auto) 0.3 Neut # (Auto) 5.21 Lymph # (Auto) 0.84 L Finney # (Auto) 0.45 Eos # (Auto) 0.20 Baso # (Auto) 0.02 Immature Gran # (Auto) 0.00 Sodium 138 Potassium 3.8 Chloride 108 H Carbon Dioxide 25 Anion Gap 6.0 BUN 13 Creatinine 0.95 Est Cr Clr Drug Dosing 32.4 Est GFR ( Amer) 61.5 Est GFR (Non-Af Amer) 53.1 BUN/Creatinine Ratio 13.2 Glucose 77 Calcium 8.9 Medications Administered Current Inpatient Medications Apixaban (Eliquis) 2.5 mg PO BID RORY Stop: 11/01/19 20:59 Last Admin: 10/02/19 21:10 Dose: 2.5 mg Documented by: Aspirin (Ecotrin Ectab) 81 mg PO QAM RORY Stop: 11/02/19 08:59 Bimatoprost (Lumigan 0.01%) 1 drops OP HS RORY Stop: 10/31/19 20:59 Last Admin: 10/02/19 21:09 Dose: 1 drops Documented by: Dorzolamide/Timolol (Cosopt) 1 drops OP BID RORY Stop: 10/31/19 08:59 Last Admin: 10/02/19 21:09 Dose: 1 drops Documented by: Sodium Chloride (Nss 1000ml) 1,000 mls @ 80 mls/hr IV .[id number] RORY Stop: 10/31/19 03:16 Last Admin: 10/02/19 17:51 Dose: 80 mls/hr Documented by: Ioversol (Optiray 320 125ml) 115 ml IV ONCE PRN PRN Reason: Interaction Checking Stop: 10/04/19 22:17 Last Admin: 09/30/19 22:18 Dose: 115 ml Documented by: Miscellaneous Information (Pharmacist Discharge Med Rec Consult) 1 ea N/A UD PRN PRN Reason: Consult Stop: 10/31/19 03:16 Ondansetron HCl (Zofran) 4 mg IV Q6H PRN PRN Reason: Nausea Stop: 10/31/19 03:16 PG Care Time/CCT Total # of Minutes Spent Total Time Spent with Patient: Total time spent is greater than 50% in coordination of care (as documented) at patient's floor/unit and/or counseling patient: Coding Level of Care Code 71268 Subseq Hosp Care Lvl 3 Diagnoses Acute CVA (cerebrovascular accident) I63.9 Subdural hematoma S06.5X9A Atrial fibrillation I48.91 Atrial fibrillation type: unspecified Cardiac pacemaker in situ Z95.0 Chronic kidney disease N18.9 Dyslipidemia E78.5 Gastroesophageal reflux disease K21.9 Hypertension I10 Glaucoma H40.9 (1) Atrial fibrillation Atrial fibrillation type: unspecified Qualified Code(s): I48.91 - Unspecified atrial fibrillation
[2019-10-03 06:52] LABS: Basophils # (auto) 0.03 K/uL (0-0.2); Basophils % (auto) 0.4 %; Eosinophils # (auto) 0.22 K/uL (0-0.5); Eosinophils % (auto) 2.9 %; Hematocrit (blood only) 37.3 % (37-47); Hemoglobin 12.1 g/dL (12.0-16.0); Immature Granulocytes # (auto) 0.01 K/uL (0.00-0.02); Immature Granulocytes % (auto) 0.1 %; Lymphocytes % (auto) 10.7 %; Mean Corpuscular Hemoglobin 31.3 pg (25-34); Mean Corpuscular Hgb Conc 32.4 g/dL (32-36); Mean Corpuscular Volume 96.6 fL (80-100); Monocytes # (auto) 0.47 K/uL (0.11-0.59); Monocytes % (auto) 6.3 %; Neutrophils # (auto) 5.98 K/uL (1.4-6.5); Neutrophils % (auto) 79.6 %; Platelet Count 197 K/uL (130-400); RDW Standard Deviation 45.2 fL (36.4-46.3); Red Blood Count 3.86 M/uL (4.2-5.4); White Blood Count 7.51 K/uL (4.8-10.8)
[2019-10-03 07:29] LABS: BUN Creatinine Ratio 18.6 (10-20); Calcium 8.8 mg/dl (8.5-10.1); Creatinine Clr Calc Pharmacy 28.6 ml/min; Est GFR (African American) 52.1; Potassium 3.6 mmol/L (3.5-5.1)
[2019-10-03] MEDS: DORZOLAMIDE/TIMOLOL 22.3/6.8MG/ML 10 ML BTL OP SCH (08:54)
[2019-10-03] MEDS: APIXABAN 2.5 MG TAB PO SCH (08:54)
[2019-10-03] MEDS ORDERED: METOPROLOL SUCC 25MG EXT REL TAB PO SCH (09:00)
[2019-10-03] MEDS ORDERED: ASPIRIN 81 MG ECTAB PO SCH (09:00)
--- NOTE | 2019-10-03 10:45 | Neurology Progress Note ---
Date of Service October 03, 2019 Assessment & Plan (1) Acute CVA (cerebrovascular accident): (2) Aphasia due to acute stroke: (3) Acute right hemiparesis: (4) Encephalopathy: (5) Subdural hematoma: This patient presented September 29 with speech disorder and right hemiplegia. I suspect an acute left hemispheric stroke creating what appears to be a right lanette paresis (now improving) with a motor a facial. The patient seems to understand very well. Although a seizure cannot be excluded, I have not seen a Bay's paralysis with a persistent motor aphasia as the unilateral weakness improved. Today her weakness is similar to yesterday but improved compared to the day before. There are no signs of encephalopathy/delirium today. I cannot entirely exclude an underlying dementia however. [place] is her [place] language but she does know American very well. Patient had a history of left, small subdural hematoma that has now clinically resolved. She was on warfarin prior to the subdural hematoma but was not put back on prior to this stroke. CT scan show old small vessel ischemia as well. She has persistent atrial fibrillation with a pacemaker. I spoke with Dr. Layton and apparently her pacemaker is not MRI compatible. Recommendations: 1. Unfortunately, I believe it is best to not obtain an MRI of the brain at this time. Also, I am not certain what it would change clinically. 2. Continue 81 milligram aspirin tablet daily. (She has old small vessel ischemic change on CT for which anticoagulation will not help) 3. Continue apixaban. Given the persistent atrial fibrillation, she is at high stroke risk and anticoagulants should be restarted. According to Dr. Piña (stroke neurologist at [facility]), he would prefer apixaban over warfarin. 4. Control blood pressure as you are doing, aiming for a mean arterial pressure approximately 95-100. 5. Avoid statins for now as there is an increased hemorrhage risk given her age, history of subdural hematoma, and lipid parameters. 6. Continue physical, occupational, and speech therapy. Overall, I spent a total of 25 minutes with this case including review of records, direct evaluation the patient at bedside, and discussion of the case with Dr. Camargo, including differential diagnosis and treatment options. Admission and Anticipated Discharge Date Admission Date: October 01, 2019 Subjective Patient is sitting up in chair doing well. She has a right face > arm > leg weakness as before (similar to yesterday). She tries to speak is very difficult for her to get words out. Blood pressure is 132/85 and CBC and Chem profile were unremarkable. Results & Data ([facility]) Vital Signs (Past 12 Hours) Vital Signs Temp Pulse Resp BP BP Pulse Ox 10/03/19 07:18 36.7 C 79 18 132/85 95 10/03/19 04:14 36.5 C 101 H 20 148/83 H 97 10/02/19 23:00 36.9 C 98 H 20 150/89 H 98 Exam (Neuro) Physical Exam: She is awake and alert. She is sitting well in the chair with a dense right facial droop. Her right arm has some movement proximally and distally but not as good as the right leg. Strength is 4/5 proximally and 3/5 distally. She can extend at the knee and dorsiflex her foot some. Strength in the right leg is 4/5. Left side is 5/5. Extraocular muscles are intact without nystagmus. She attempts to speak but cannot formulate words. Due to takes sounds. She seems to follow commands and understand what I say well PG Care Time/CCT Total # of Minutes Spent Total Time Spent with Patient: Total time spent is greater than 50% in coordination of care (as documented) at patient's floor/unit and/or counseling patient: Coding Level of Care Code 27755 Subseq Hosp Care Lvl 2 Diagnoses Acute CVA (cerebrovascular accident) I63.9 Aphasia due to acute stroke I63.9; R47.01 Acute right hemiparesis G81.91 Encephalopathy G93.40 Subdural hematoma S06.5X9A Time Spent (min) 25
[2019-10-03] MEDS ORDERED: METOPROLOL SUCC 25MG EXT REL TAB PO STA (12:55)
[2019-10-03] MEDS ORDERED: STROKE PATIENT DISCHARGE STA (14:46)
--- NOTE | 2019-10-03 14:48 | Discharge Summary ---
Date of Service October 03, 2019 Admission HPI Per Admitting Provider The patient is an 88-year-old female with a past medical history including atrial fibrillation, cardiac pacemaker, subdural hematoma 08/18/2019, history of CVA, hematoma, CKD, dyslipidemia, gait disturbance, GERD, hepatic cyst, hyperglycemia, osteoarthritis, permanent atrial fibrillation and hypertension. The patient's last known well time was around 9:30 AM. After not responding to attempts to contact her later on in the day, the patient was found lying on the floor of her personal correction showing right upper and lower extremity weakness and right facial droop. She was reported to have slurred speech at that time upon arrival to the ED, and was complaining of left hip pain. She had been on differential had a subdural hematoma on 08/25/2019, and reportedly was not on warfarin at the personal-correction since that time. The patient was assessed immediately as a stroke alert, after advance notice was given to the emergency department about the patient's upcoming arrival. CT of head did not show any acute bleeding. CTA of head neck was reviewed by tele-stroke from [facility], and was felt to not be significantly different from previous scans at the end of July. Recommendation by tele-stroke was to meet the patient, give the usual supportive measures such as IV fluids, and order an MRI of brain. Principal Diagnosis Acute left sided ischemic stroke causing right sided weakness Discharge Exam Constitutional WD/WN, vitals as above Eyes PERRL, conjunctivae normal, anicteric sclerae ENMT external ear and nose normal, oropharynx normal Neck trachea midline, no thyromegaly Respiratory normal respiratory effort, lungs clear to auscultation Cardiovascular Rate/Rhythm: regular rate and + irregularly irregular Heart Sounds: normal S1 and normal S2; no murmur Vessels: no JVD Extremities: normal capillary refill; no edema Gastrointestinal (Abdomen) normal bowel sounds, soft, nontender, no hepatosplenomegaly Musculoskeletal Head/Neck/Chest: normocephalic, head atraumatic and neck supple Extremities: extremities normal to inspection and + abnormal strength (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, 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 Verified 10/01/19 03:23 Consultations 09/30/19 23:41 ED Decision to Admit Stat 10/01/19 03:17 Consult Case Management - Discharge Planning Routine Consult Case Management - Discharge Planning Routine Consult Neurology Routine Ordered Studies 09/30/19 21:55 CT angio head w con Urgent CT angio neck with con Urgent CT head/brain wo con Urgent 10/01/19 14:30 CT head/brain wo con Urgent Hospital Course (1) Acute CVA (cerebrovascular accident): Admit to monitored bed with stroke without TPA order set. CT head no stroke, repeat CT head on 09/30 also without evidence of stroke CT angiogram without any significant stenosis cannot get MRI due to pacemaker echo normal has known afib, was off her anticoagulation due to recent fall and subdural hematoma improvement in right sided strength, still with expressive aphasia Dr. Beltran discussed with neurology at [place] plan is for Apixiban BID for anticoagulation, aspirin 81mg daily no statin recommended due to her age group, increased risk of bleeding blood pressure control speech, PT/OT consulted doing better plan for SNF rehab today (2) Subdural hematoma: Subdural hematoma noted on CT of 08/25/2019, is no longer apparent on CT on admission had subdural due to fall, being on Coumadin will use Apixiban instead should have decreased risk of falling at SNF (3) Atrial fibrillation: Atrial fibrillation/hypertension- Patient's warfarin has been discontinued after subdural hematoma noted on 08/25/2019. BP stable off of medications will resume metoprolol due to afib (4) Cardiac pacemaker in situ: not MRI compatable (5) Chronic kidney disease: Creatinine 1.29 upon admission, with range 1.27-1.43 Cr and electrolytes stable, stop IV fluids (6) Dyslipidemia: no further Pravastatin as it would put her at increased risk of bleeding (7) Gastroesophageal reflux disease: Place on famotidine 20 mg IV every 12 hours (8) Hypertension: Allow permissive hypertension during stay BP initially normal, starting to go back up resumed Toprol 50mg and Felodipine 5mg daily if BP > 140/90 then could add back Lisinopril outpatient (9) Glaucoma: Continue usual eyedrops Total Time Total Time Spent Total Time Spent (In Minutes): 33 minutes Total Time Includes: Examination of the Patient, Discharge Planning, Medication Reconciliation and Communication With Other Providers (Dr. Beltran) Discharge Plan Discharge Items Patient Disposition: Transfer Retirement Fac Reason For Visit: CVA Discharge Diagnosis: Left sided acute CVA Right motor deficit, expressive aphasia Condition on Discharge: Good Goals: stroke rehab at [facility] medical management of stroke Lifting: None Bathing: No limitations Exercise/Sports: Gradually increase as tolerated Weightbearing: Full weightbearing Non-emergency contact: Primary Care Provider Call non-emergency contact if: you have any medication questions and your symptoms worsen Follow-up/Referrals: Wellington Beltran MD [Physician] - (6-8 weeks) Mega Wayne DO [Primary Care Provider] - Diet: Heart Healthy Diet Texture: Easy to Chew Liquid Consistency: [facility] thick Addtl Attending Provider Instructions: Medications: - ASPIRIN: 81mg daily - APIXIBAN: 2.5mg twice a day, this replaces Coumadin Left sided acute stroke with right sided weakness, expressive aphasia CT head did not show stroke, even when repeated 24 hours after presentation patient cannot have MRI due to pacemaker Dr. Beltran evaluated patient, recommends treating with aspirin he discussed case with stroke neurologist at [place], they feel that she needs anticoagulated with her atrial fibrillation recently had a subdural hematoma due to fall while on Coumadin will have less bleeding risk with Apixiban, also, she will likely not return to independent living so in a SNF setting she should be at lower risk for falling stopped statin as this medication would only increase her risk of bleeding, not indicated in her age group Hypertension: blood pressure well controlled off of medications initially, starting to go back up will discharge on Toprol 50mg and felodipine 5mg daily hold Lisinopril and Spironolactone goal for blood pressure is < 140/80, if pressures start to go up can add back lisinopril Patient will need continued speech, occupational and physical therapy Diet: easy to chew, nectar thick fluids (this could improve with time if her swallowing function improves) Risk Factors for Stroke: You can reduce your chances of stroke by working with your medical provider to adopt a healthy lifestyle. Some specific ways to lower your chance of stroke are: * If you are a smoker, now is the time to stop smoking cigarettes * If you are diabetic, improve the control of your blood sugars * Avoid excessive amounts of alcohol * Control high blood pressure * Lose weight if you are overweight * Be sure to lead an active lifestyle * Eat a healthy diet low in salt, cholesterol and fat You should know about other risk factors for stroke that you are unable to control. These include: * Age 55 years or older * Male gender * Certain racial groups: , or / * Family History of Stroke, Mini stroke or Heart Attack * Sickle Cell Disease Follow Up: It is important for you to keep your follow up appointments with your medical provider. Who to Call and When: Medical Emergencies: Call 911 immediately if you experience any of the following warning signs and symptoms of Stroke: * Sudden numbness or weakness of the face, arm or leg, especially on one side of the body * Sudden confusion, trouble speaking or understanding * Sudden trouble seeing in one or both eyes * Sudden trouble walking, dizziness, loss of balance or coordination * Sudden severe headache with no cause Do not delay calling 911 if you experience any warning signs or symptoms of a stroke. Delay in seeking medical attention may affect what treatments can be given to you. . Pending Studies at Discharge: No Stand-Alone Forms: My [facility] Skilled Items Patient informed of condition?: Yes DNR: No Discharge Level of Care: Skilled Communicable Disease: No Discharge Prognosis: Stable Lines: None Urinary Catheter: No Medications and DC Order Prescriptions: New aspirin 81 mg Tablet,Delayed Release (Dr/Ec) 81 mg PO QAM 30 Days Qty: 30 RF: 3 Eliquis 2.5 mg Tablet 2.5 mg PO BID 30 Days Qty: 60 RF: 3 Continued metoprolol succinate 50 mg tablet extended release 24 hr 50 mg PO DAILY Qty: 90 RF: 3 tolterodine 4 mg capsule,extended release 24hr 4 mg PO DAILY RF: 0 dorzolamide-timolol [Cosopt] 22.3-6.8 mg/mL drops 1 drops OP BID RF: 0 multivitamin tablet 1 tab PO DAILY RF: 0 acetaminophen 500 mg tablet 500 mg PO Q4H PRN (Reason: pain/fever) RF: 0 Lumigan 0.01 % Drops 1 drp OPHTHALMIC (EYE) HS RF: 0 lidocaine 5 % adhesive patch,medicated 1 patch topical .COMPLEX PRN (Reason: Back Pain) RF: 0 meclizine 25 mg tablet 25 mg PO DAILY PRN (Reason: Dizziness Or Vertigo) RF: 0 felodipine 5 mg tablet extended release 24 hr 5 mg PO DAILY RF: 0 flaxseed oil 1,000 mg Capsule 1,000 mg PO DAILY RF: 0 calcium carbonate [Calcium 500] 500 mg calcium (1,250 mg) Tablet 500 mg PO DAILY RF: 0 Premarin 0.625 mg/gram Cream 0.625 mg VAGINAL .[id number] RF: 0 Ranitidine 150 mg PO DAILY RF: 0 Discontinued spironolactone 25 mg tablet 50 mg PO DAILY Qty: 60 RF: 0 lisinopril 20 mg tablet 20 mg PO BID Qty: 180 RF: 3 warfarin 3 mg tablet 0 mg PO UD RF: 0 pravastatin 20 mg tablet 20 mg PO DAILY RF: 0 Discharge Orders: Discharge Order (Routine); Ordered 10/03/19 Ordered By: Anil Camargo Admission Data Admit Date/Time: 10/01/19 01:45 Attending Provider: Anil Camargo Admit Provider: Acosta Mock Primary Care Provider: Mega Wayne Other Providers: Acosta Mock ; Mega Delgado Other Interventions: Discharge Summary Assessment (RN) Last Done: 10/03/19 15:37 DC Date/Time DO NOT enter until pt leaves facility: 10/03/19 17:00 Coding Level of Care Code D/C Day Management >30 mins Diagnoses Acute CVA (cerebrovascular accident) I63.9 Subdural hematoma S06.5X9A Atrial fibrillation I48.91 Atrial fibrillation type: unspecified Cardiac pacemaker in situ Z95.0 Chronic kidney disease N18.9 Dyslipidemia E78.5 Gastroesophageal reflux disease K21.9 Hypertension I10 Glaucoma H40.9
[2019-10-04] MEDS ORDERED: METOPROLOL SUCC 50MG EXT REL TAB PO SCH (09:00)
== END 2019-10-03 17:00 | DRG 64 ==
LOC: ED 22:02 → 2N 10-01 01:45 → SUATTDRO 10-01 01:45 → 2N 10-01 02:03